=== PATIENT | female | born 1960 | race Caucasian/White ===

== ENCOUNTER 2023-08-13 13:31 | Emergency (ER) | payer MEDICAID, SELFPAY ==
[2023-08-13 13:34] VITALS: BP 116/59; PULSE 66; RESP 20; TEMP 36.6; O2SAT 99; BMI 32.3
--- NOTE | 2023-08-13 13:35 | XR_ITS ---
The [address] [address] Patient Name: ZEV CALDWELL MRN: [id number] date: 1960 Sex: F Assigned Patient Location: ER Current Patient Location: ED.MAIN Accession/Order Number: [id number] Exam Date: 08/13/2023 13:55 Report Date: 08/13/2023 14:29 At the request of: BESS SHAW Procedure: XR pelvis 1-2V EXAM: XR pelvis 1-2V HISTORY: fall COMPARISON: None. TECHNIQUE: One view of the pelvis FINDINGS: There is no acute fracture or dislocation. The soft tissues are unremarkable. Mildly gaseous distention of the small bowel loops. XR/XR pelvis 1-2V IMPRESSION: No acute fracture or dislocation. Electronically authenticated by: REX SANCHEZ Date: 08/13/2023 14:29
--- NOTE | 2023-08-13 13:35 | CT_ITS ---
The [address] [address] Patient Name: ZEV CALDWELL MRN: [id number] date: 1960 Sex: F Assigned Patient Location: ER Current Patient Location: ER Accession/Order Number: [id number] Exam Date: 08/13/2023 13:55 Report Date: 08/13/2023 14:32 At the request of: BESS SHAW Procedure: CT facial bones wo con CT head/brain wo con, CT facial bones wo con, 08/13/2023 1:55 PM EST INDICATION: Fall COMPARISON: Noncontrast CT of the head 05/05/2022 TECHNIQUE: Axial CT images of the brain from skull base to vertex, including portions of the face and sinuses, were obtained without contrast. High-resolution axial images of the maxillofacial region with multiplanar reformatted imaging. Portions of the brain, skull base, and upper neck were also included in the imaging field. Multiplanar reformatted images were generated and reviewed as needed. Dose reduction techniques were achieved by using automated exposure control and/or adjustment of mA and/or kV according to patient size and/or use of iterative reconstruction technique FINDINGS: Small left frontal subgaleal hematoma. Global cortical atrophy. No intracranial mass, hydrocephalus, midline shift or acute hemorrhage.No extra-axial collection. Juan-white matter differentiation is preserved. Facial bones are intact. Mandible, as well as mandibular condyles are intact. Temporomandibular joints are appropriately positioned. Zygomatic arches are intact. No evidence for nasal bone fracture. Nasal septum is midline. Mild chronic mucosal thickening right maxillary sinus. The remaining paranasal sinuses and mastoid air cells are clear. On the coronal reformatted images, the inferior orbital floor and rims are intact. No acute skull fracture. CT/CT facial bones wo con IMPRESSION: 1. No acute intracranial infarct or hemorrhage. 2. Small left frontal subgaleal hematoma. No acute fracture or dislocation. Electronically authenticated by: NOEMY ANDUJAR Date: 08/13/2023 14:32
--- NOTE | 2023-08-13 13:35 | CT_ITS ---
The [address] [address] Patient Name: ZEV CALDWELL MRN: [id number] date: 1960 Sex: F Assigned Patient Location: ER Current Patient Location: ER Accession/Order Number: [id number] Exam Date: 08/13/2023 13:55 Report Date: 08/13/2023 14:32 At the request of: BESS SHAW Procedure: CT head/brain wo con CT head/brain wo con, CT facial bones wo con, 08/13/2023 1:55 PM EST INDICATION: Fall COMPARISON: Noncontrast CT of the head 05/05/2022 TECHNIQUE: Axial CT images of the brain from skull base to vertex, including portions of the face and sinuses, were obtained without contrast. High-resolution axial images of the maxillofacial region with multiplanar reformatted imaging. Portions of the brain, skull base, and upper neck were also included in the imaging field. Multiplanar reformatted images were generated and reviewed as needed. Dose reduction techniques were achieved by using automated exposure control and/or adjustment of mA and/or kV according to patient size and/or use of iterative reconstruction technique FINDINGS: Small left frontal subgaleal hematoma. Global cortical atrophy. No intracranial mass, hydrocephalus, midline shift or acute hemorrhage.No extra-axial collection. Juan-white matter differentiation is preserved. Facial bones are intact. Mandible, as well as mandibular condyles are intact. Temporomandibular joints are appropriately positioned. Zygomatic arches are intact. No evidence for nasal bone fracture. Nasal septum is midline. Mild chronic mucosal thickening right maxillary sinus. The remaining paranasal sinuses and mastoid air cells are clear. On the coronal reformatted images, the inferior orbital floor and rims are intact. No acute skull fracture. CT/CT head/brain wo con IMPRESSION: 1. No acute intracranial infarct or hemorrhage. 2. Small left frontal subgaleal hematoma. No acute fracture or dislocation. Electronically authenticated by: NOEMY ANDUJAR Date: 08/13/2023 14:32
--- NOTE | 2023-08-13 13:35 | XR_ITS ---
The [address] [address] Patient Name: ZEV CALDWELL MRN: [id number] date: 1960 Sex: F Assigned Patient Location: ER Current Patient Location: ED.MAIN Accession/Order Number: [id number] Exam Date: 08/13/2023 13:55 Report Date: 08/13/2023 15:07 At the request of: BESS SHAW Procedure: XR chest 1V EXAMINATION: XR chest 1V HISTORY: fall COMPARISON: No relevant comparison available. FINDINGS: LUNGS: No significant pulmonary parenchymal abnormalities. VASCULATURE: No increased pulmonary vasculature. PLEURA: No pneumothorax, effusion, or pleural thickening. CARDIAC: No cardiomegaly or cardiac silhouette abnormality. MEDIASTINUM: No visible mass or adenopathy. BONES: No fracture or visible bone lesion. OTHER: Negative. XR/XR chest 1V IMPRESSION: 1. No acute cardiopulmonary process. 2. No appreciable fracture. Electronically authenticated by: HOOD FAYE Date: 08/13/2023 15:07
--- NOTE | 2023-08-13 13:35 | CT_ITS ---
The [address] [address] Patient Name: ZEV CALDWELL MRN: [id number] date: 1960 Sex: F Assigned Patient Location: ER Current Patient Location: ER Accession/Order Number: [id number] Exam Date: 08/13/2023 13:55 Report Date: 08/13/2023 14:39 At the request of: BESS SHAW Procedure: CT cervical spine wo con CT cervical spine wo con, 08/13/2023 1:55 PM EST INDICATION: fall COMPARISON: There is no appropriate prior study for comparison. TECHNIQUE: Thin-section axial CT images of the entire cervical spine were acquired without contrast. Supplemental 2D reformatted images were generated and reviewed as needed. Dose reduction techniques were achieved by using automated exposure control and/or adjustment of mA and/or kV according to patient size and/or use of iterative reconstruction technique. FINDINGS: There is straightening of normal physiologic cervical lordosis. No acute fracture or dislocation is noted. There is multilevel degenerative changes of cervical spine. The visualized portions of lungs are unremarkable. There is no suspicious osteolytic or osteoblastic lesion. CT/CT cervical spine wo con IMPRESSION: No acute fracture or dislocation is noted. Electronically authenticated by: CHADWICK ALLEN Date: 08/13/2023 14:39
--- NOTE | 2023-08-13 13:36 | ED.FALL1 ---
HPI - Fall General Chief Complaint: Fall Stated Complaint: fall Time Seen by Provider: 08/13/23 13:34 History of Present Illness HPI Narrative: Patient is a 63-year-old female who presents to the emergency department by ambulance from the dementia unit where she is a resident at a local senior care for the evaluation of an injury to the head. Patient has a history of psychosis, contractures. She is not anticoagulated. This was unwitnessed fall in the senior care, apparently the patient rolled out of bed and was found on the floor. She chronically complains of generalized pain, senior care staff say she is at her mental baseline. She has not had any other focal medical complaints. Related Data Allergies Allergy/AdvReac Type Severity Reaction Status Date / Time No Known Drug Allergies Allergy Verified 08/13/23 13:41 Review of Systems ROS Status of ROS unobtainable due to medical condition and unobtainable due to mental status Exam Narrative Exam Narrative: Gen.: Awake, alert, in no distress Head: Normocephalic, swelling and ecchymosis noted to the left forehead above the eyebrow with minimal swelling of the left cheek. No abrasions, lacerations noted. No dental injury noted. No epistaxis or nasal injury. Neck: C-spine nontender ENT: Moist mucous membranes Respiratory: No respiratory distress, lungs clear bilaterally Cardio: Regular rate and rhythm Gastrointestinal: Abdomen is soft, nondistended and nontender to palpation; pelvis is stable Extremities: Patient moves lower extremities actively, no bony point tenderness. Contractures noted of the upper extremities with no focal tenderness. Back: No bony tenderness of the T-spine or L-spine; no ecchymosis or obvious deformity, no step-off Psych: Patient is anxious Neuro: No focal neuro deficit Skin: Warm, dry, intact Constitutional Vital Signs, click to edit/add: Last Vital Signs Temp 98 F 08/13/23 13:34 Pulse 55 L 08/13/23 16:00 Resp 16 08/13/23 16:00 BP 116/59 08/13/23 13:34 Pulse Ox 98 08/13/23 16:00 O2 Del Method Room Air 08/13/23 16:00 Course Vital Signs Vital signs: Vital Signs Temperature 98 F 08/13/23 13:34 Pulse Rate 66 08/13/23 13:34 Respiratory Rate 20 08/13/23 13:34 Blood Pressure 116/59 08/13/23 13:34 Pulse Oximetry 99 08/13/23 13:34 Oxygen Delivery Method Room Air 08/13/23 13:34 Temperature 98 F 08/13/23 13:34 Pulse Rate 55 L 08/13/23 16:00 Respiratory Rate 16 08/13/23 16:00 Blood Pressure 116/59 08/13/23 13:34 Pulse Oximetry 98 08/13/23 16:00 Oxygen Delivery Method Room Air 08/13/23 16:00 MDM - Fall MDM Narrative Medical decision making narrative: Patient with a benign exam other than hematoma to the left forehead. She is at her mental baseline, CT of the head, facial bones, C-spine within normal limits. X-rays of the chest and pelvis are unremarkable. She has normal vital signs in the Emergency Room. No evidence of extremity injury. Discharged back to the senior care, follow-up with PCP and return to the Emergency Room if symptoms change or worsen. Medical Records Attestation: I reviewed the patient's medical records. Imaging Data XR pelvis: Attestation: I have reviewed the pertinent imaging results. Radiologist's impression: Procedure: XR pelvis 1-2V EXAM: XR pelvis 1-2V HISTORY: fall COMPARISON: None. TECHNIQUE: One view of the pelvis FINDINGS: There is no acute fracture or dislocation. The soft tissues are unremarkable. Mildly gaseous distention of the small bowel loops. IMPRESSION: No acute fracture or dislocation. Electronically authenticated by: REX SANCHEZ Date: 08/13/2023 14:29 Chest x-ray: Attestation: I have reviewed the pertinent imaging results. CT scan - head: Attestation: I have reviewed the pertinent imaging results. Radiologist's impression: Procedure: CT head/brain wo con CT head/brain wo con, CT facial bones wo con, 08/13/2023 1:55 PM EST INDICATION: Fall COMPARISON: Noncontrast CT of the head 05/05/2022 TECHNIQUE: Axial CT images of the brain from skull base to vertex, including portions of the face and sinuses, were obtained without contrast. High-resolution axial images of the maxillofacial region with multiplanar reformatted imaging. Portions of the brain, skull base, and upper neck were also included in the imaging field. Multiplanar reformatted images were generated and reviewed as needed. Dose reduction techniques were achieved by using automated exposure control and/or adjustment of mA and/or kV according to patient size and/or use of iterative reconstruction technique FINDINGS: Small left frontal subgaleal hematoma. Global cortical atrophy. No intracranial mass, hydrocephalus, midline shift or acute hemorrhage.No extra-axial collection. Juan-white matter differentiation is preserved. Facial bones are intact. Mandible, as well as mandibular condyles are intact. Temporomandibular joints are appropriately positioned. Zygomatic arches are intact. No evidence for nasal bone fracture. Nasal septum is midline. Mild chronic mucosal thickening right maxillary sinus. The remaining paranasal sinuses and mastoid air cells are clear. On the coronal reformatted images, the inferior orbital floor and rims are intact. No acute skull fracture. IMPRESSION: 1. No acute intracranial infarct or hemorrhage. 2. Small left frontal subgaleal hematoma. No acute fracture or dislocation. Electronically authenticated by: NOEMY ANDUJAR Date: 08/13/2023 14:32 CT cervical spine: Attestation: I have reviewed the pertinent imaging results. Radiologist's impression: Procedure: CT cervical spine wo con CT cervical spine wo con, 08/13/2023 1:55 PM EST INDICATION: fall COMPARISON: There is no appropriate prior study for comparison. TECHNIQUE: Thin-section axial CT images of the entire cervical spine were acquired without contrast. Supplemental 2D reformatted images were generated and reviewed as needed. Dose reduction techniques were achieved by using automated exposure control and/or adjustment of mA and/or kV according to patient size and/or use of iterative reconstruction technique. FINDINGS: There is straightening of normal physiologic cervical lordosis. No acute fracture or dislocation is noted. There is multilevel degenerative changes of cervical spine. The visualized portions of lungs are unremarkable. There is no suspicious osteolytic or osteoblastic lesion. IMPRESSION: No acute fracture or dislocation is noted. Electronically authenticated by: CHADWICK ALLEN Date: 08/13/2023 14:39 CT facial bones: Attestation: I have reviewed the pertinent imaging results. Radiologist's impression: Procedure: CT head/brain wo con CT head/brain wo con, CT facial bones wo con, 08/13/2023 1:55 PM EST INDICATION: Fall COMPARISON: Noncontrast CT of the head 05/05/2022 TECHNIQUE: Axial CT images of the brain from skull base to vertex, including portions of the face and sinuses, were obtained without contrast. High-resolution axial images of the maxillofacial region with multiplanar reformatted imaging. Portions of the brain, skull base, and upper neck were also included in the imaging field. Multiplanar reformatted images were generated and reviewed as needed. Dose reduction techniques were achieved by using automated exposure control and/or adjustment of mA and/or kV according to patient size and/or use of iterative reconstruction technique FINDINGS: Small left frontal subgaleal hematoma. Global cortical atrophy. No intracranial mass, hydrocephalus, midline shift or acute hemorrhage.No extra-axial collection. Juan-white matter differentiation is preserved. Facial bones are intact. Mandible, as well as mandibular condyles are intact. Temporomandibular joints are appropriately positioned. Zygomatic arches are intact. No evidence for nasal bone fracture. Nasal septum is midline. Mild chronic mucosal thickening right maxillary sinus. The remaining paranasal sinuses and mastoid air cells are clear. On the coronal reformatted images, the inferior orbital floor and rims are intact. No acute skull fracture. IMPRESSION: 1. No acute intracranial infarct or hemorrhage. 2. Small left frontal subgaleal hematoma. No acute fracture or dislocation. Electronically authenticated by: NOEMY ANUDJAR Date: 08/13/2023 14:32 Discharge Plan Discharge Chief Complaint: Fall Clinical Impression: Closed head injury, Contusion of face Patient Disposition: Home, Self-Care Time of Disposition Decision: 14:51 Condition: Good Mode of Transportation: EMS Instructions: Head Injury (ED), Facial Contusion (ED) Stand Alone Forms: Portal Instructions Referrals: DEVIN PIERCE [Primary Care Provider] - 1 week Discharge Date/Time: 08/13/23 16:15
[2023-08-13 14:52] VITALS: PULSE 56; RESP 20; O2SAT 94
[2023-08-13 16:00] VITALS: PULSE 55; RESP 16; O2SAT 98
--- OUTSIDE RECORDS SUMMARY | 2023-09-11 21:47 | XMS_ITS | CCD ---
Author Name Unknown Address [address] [place] [address] Organization [facility] Care Team Providers Care Lace Sewer Name Role Phone Unavailable Primary Care Provider UnavailSTEVEN Davis Referring Unavailable AHDAISY FERNANDEZ Referring Unavailable DAISY GUEVARA Referring Unavailable CHELSI PARRA Admitting Unavailable CHELSI PARRA Attending Unavailable Max Horan Unavailable HIRAM, DR BARNES Attending Unavailable HIRAM, DR BARNES Admitting Unavailable MEME, DR MACRINA Varela Consulting Unavailable HAY, DR BARNES Consulting Unavailable KLYMMIMI Consulting Unavailable BENEDICT, DR MORATAYA Attending Unavailable BENEDICT, DR MORATAYA Consulting Unavailable BENEDICT, DR MORATAYA Admitting Unavailable ZIEBER, DR MORATAYA R Consulting Unavailable Allergies Allergy Classification Reported Allergen(s) Allergy Type Date of Onset Reaction(s) Facility (4 sources) Other Propensity to adverse reactions 08-02-2011 [place], [place] Medications Current Medications Medication Drug Class(es) Dates Sig (Normalized) Sig (Original) Acetaminophen (1 source) Start: 09-14-2020 acetaminophen (TYLENOL) tablet 650 mg ARIPiprazole 5 mg oral tablet (1 source) Atypical Antipsychotic ARIPiprazole 5 MG Oral for 30 Days Active cefTRIAXone (ROCEPHIN) 1 g in sterile water 10 mL IV syringe (1 source) Start: 09-14-2020 cefTRIAXone (ROCEPHIN) 1 g in sterile water 10 mL IV syringe cephalexin 500 mg oral capsule (2 sources) Cephalosporin Antibacterial Start: 09-15-2020 End: 09-22-2020 take 1 capsule by mouth twice daily cephALEXin (KEFLEX) 500 MG capsule Take 1 capsule by mouth 2 times daily for 7 days 14 capsule 0 09/15/2020 09/22/2020 Active diazePAM 5 mg oral tablet (1 source) Benzodiazepine diazePAM 5 MG Or al for 1 Days Active 0.4 ml enoxaparin sodium 100 mg/ml prefilled syringe (1 source) Low Molecular Weight Heparin Start: 09-14-2020 inject 40 mg by subcutaneous injection once daily 40 mg, Subcutaneous, DAILY, First dose on Sun09/14/20 at 0930 ergocalciferol 1.25 mg oral capsule (1 source) Provitamin D2 Compound Vitamin D (Ergocalciferol) 1.25 MG (61775 UT) Oral for 28 Days Active famotidine 20 mg oral tablet (1 source) Histamine-2 Receptor Antagonist Start: 09-14-2020 take 20 mg by mouth twice daily 20 mg, Oral, 2 TIMES DAILY, First dose on Sun09/14/20 at 0930 1 ml haloperidol 5 mg/ml injection (1 source) Typical Antipsychotic Start: 09-15-2020 haloperidol lactate (HALDOL) injection 1 mg LORazepam 1 mg oral tablet (1 source) Benzodiazepine LORazepam 1 MG Oral for 7 Days Active meclizine hydrochloride 25 mg oral tablet (5 sources) Antiemetic Start: 06-06-2015 take 25 mg by mouth three times daily as needed for dizziness 25 mg, Oral, 3 TIMES DAILY PRN, Dizziness, Starting Sun09/14/20 at 0911 nystatin 100159 unt/ml topical cream (1 source) Polyene Antifungal Nystatin 1000 00 UNIT/GM External for 14 Days Active polyethylene glycol 3350 89571 mg powder for oral solution (1 source) Osmotic Laxative Start: 09-14-2020 17 g, Oral, DAILY PRN, Constipation, Starting Sun09/14/20 at 0911 First line therapy for constipation primidone 50 mg oral tablet (1 source) Anti-epileptic Agent Primidone 5 0 MG Oral for 30 Days Active Promethazine (1 source) Phenothiazine Start: 09-14-2020 promethazine (PHENERGAN) tablet 12.5 mg raloxifene hydrochloride 60 mg oral tablet (5 sources) Estrogen Agonist/Antagonist Raloxifene HCl 60 MG Oral for 30 Days Active sertraline 25 mg oral tablet (1 source) Serotonin Reuptake Inhibitor Sertraline HCl 25 MG Oral for 30 Days Active 3 ml sodium chloride 9 mg/ml injection (3 sources) Start: 09-14-2020 Intravenous, at 75 mL/hr, CONTINUOUS, Starting Sun09/14/20 at 0930 Start: 09-14-2020 10 mL, Intrave nous, EVERY 12 HOURS SCHEDULED (2 times per day), First dose on Sun09/14/20 at 0930 Start: 09-14-2020 take 10 mL intraveno us route once as needed 10 mL, Intravenous, PRN, Line Care, After every IV line use, Starting Sun09/14/20 at 0911 sulfamethoxazole 800 mg / trimethoprim 160 mg oral tablet (1 source) Dihydrofolate Reductase Inhibitor Antibacterial, Sulfonamide Antimicrobial Sulfamethoxazole-Tri methoprim 800-160 MG Oral for 7 Days Active valproic acid 50 mg/ml oral solution (1 source) Mood Stabilizer, Anti-epileptic Agent Valproic Acid 250 M G/5ML Oral for 30 Days Active Problems Active Problems Problem Classification Problem Date Documented Date Episodic/Chronic Deficiency and other anemia (5 sources) Normocytic anemia; Translations: [Normocytic anemia] Onset: 09-14-2020 09-14-2020 Episodic Mood disorders (4 sources) Depressive disorder; Translations: [Depression] Onset: 11-11-2010 07-10-2011 Chronic Nutritional deficiencies (5 sources) Nutritional marasmus; 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] Onset: 09-15-2020 09-15-2020 Chronic Osteoarthritis (4 sources) Osteoarthritis of joint of left shoulder region; Translations: [Primary osteoarthritis, left shoulder] Onset: 04-04-2022 Resolved: 04-04-2022 Chronic Other connective tissue disease (5 sources) Fibromyalgia; Translations: [Fibromyalgia] Onset: 09-14-2020 09-14-2020 Episodic Other nervous system disorders (4 sources) Nerve root disorder; 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] Onset: 12-09-2010 07-10-2011 Chronic Other nervous system disorders (4 sources) Abnormal reflex; Translations: [ABNORMAL REFLEX] Onset: 02-15-2022 Episodic Parkinson`s disease (2 sources) Parkinson's disease; Translations: [Parkinson's disease] Onset: 04-04-2022 Resolved: 04-04-2022 Chronic Residual codes; unclassified (5 sources) Altered mental status; Translations: [Altered mental status, unspecified] Onset: 09-14-2020 09-14-2020 Episodic Past or Other Problems Problem Classification Problem Date Documented Date Episodic/Chronic Other female genital disorders (4 sources) Abnormal vaginal bleeding; Translations: [Abnormal vaginal bleeding] Onset: 11-11-2010 07-10-2011 Episodic Other lower respiratory disease (4 sources) Dyspnea; Translations: [Dyspnea] Onset: 12-09-2010 07-10-2011 Episodic Other screening for suspected conditions (not mental disorders or infectious disease) (4 sources) Mammography abnormal; Translations: [Abnormal mammogram] Onset: 11-11-2010 07-10-2011 Episodic Residual codes; unclassified (4 sources) Postmenopausal state; Translations: [Post-menopausal] Onset: 10-14-2010 07-10-2011 Episodic Spondylosis; intervertebral disc disorders; other back problems (5 sources) Low back pain; Translations: [Spinal stenosis, cervical region] Onset: 10-14-2010 Resolved: 04-04-2022 07-10-2011 Episodic Unclassified (8 sources) Patient encounter status; Translations: [Screening for colorectal cancer] Onset: 10-17-2010 Resolved: 07-24-2018 07-22-2018 Results Test Name Value Interpretation Reference Range Facil ity BNPon 05-05-2022 Natriuretic peptide B (Bld) [Mass/Vol] 580.0 pg/mL Normal <=900.0 [facility] Comment on above: Performed By: #### C MP, CMADM, BNP #### [facility] [address] [address] [address] Lyndsey Hayes CARDIAC ANUP ADMITon 022 CK [Catalytic activity/Vol] 86 U/L Normal 26-[address] [facility] Comment on above: Performed By: #### C MP, CMADM, BNP #### [facility] [address] [address] [address] Lyndsey Hayes CK.MB [Mass/Vol] 1.70 ng/mL Normal <=3.60 [facility] Comment on above: Performed By: #### C MP, CMADM, BNP #### [facility] [address] [address] [address] Lyndsey Hayes HSTROP 17.8 pg/mL Normal 4.0-51.3 [facility] Comment on above: Result Comment: CUT- OFF POINTS HAVE BEEN ESTABLISHED BASED ON THE FOURTH UNIVERSAL DEFINITIONS OF MYOCARDIAL INFARCTION. THE UPPER REFERENCE LIMIT (URL) OF TROPONIN, DEFINED THE 99TH PERCENTILE OF cTnI DISTRIBUTION IN A REFERENCE POPULATION, HAS BEEN CONFIRMED THE DECISION THRESHOLD FOR CA DIAGNOSIS. Performed By: #### C MP, CMADM, BNP #### [facility] [address] [place] [address] Dr. Lyndsey Hayes ANDREA 189 ng/mL Critically high 9-82 [facility] Comment on above: Performed By: #### C MP, CMADM, BNP #### [facility] [address] [place] [address] Dr. Lyndsey Hayes CBC AUTO DIFFon 05-05-2022 BASO # 0.0 103/ul Normal 0.0-0.1 [facility] Comment on above: Performed By: #### C BC #### [facility] [address] [place] [address] Dr. Lyndsey Hayes Basophils/100 WBC (Bld) 0.2 % Normal 0.2-2.0 [facility] Comment on above: Performed By: #### C BC #### [facility] [address] [place] [address] Dr. Lyndsey Hayes EO # 0.0 103/ul Normal 0.0-0.7 [facility] Comment on above: Performed By: #### C BC #### [facility] [address] [place] [address] Dr. Lyndsey Hayes Eosinophils/100 WBC (Bld) 0.1 % Critically low 0.9-7. 0 [facility] Comment on above: Performed By: #### C BC #### [facility] [address] [place] [address] Dr. Lyndsey Hayes Erythrocyte distribution wid th (RBC) [Ratio] 13.7 % Normal 11.0-15.0 [facility] Comment on above: Performed By: #### C BC #### [facility] [address] [place] [address] Dr. Lyndsey Hayes Hematocrit (Bld) [Volume fraction] 36.2 % Normal 3 6.0-48.[address] [facility] Comment on above: Performed By: #### C BC #### [facility] [address] [address] [address] Lyndsey Hayes Hemoglobin (Bld) [Mass/Vol] 11.6 g/dL Critically low 12.0 -16.0 [facility] Comment on above: Performed By: #### C BC #### [facility] [address] [place] [address] Dr. Lyndsey Hayes IG # 0.03 10e3/ul Normal 0.00-0.[address] [facility] Comment on above: Performed By: #### C BC #### [facility] [address] [place] [address] Dr. Lyndsey Hayes IG % 0.3 % Normal 0.0-0.5 [facility] Comment on above: Performed By: #### C BC #### [facility] [address] [place] [address] Dr. Lyndsey Hayes LYMPH # 1.4 103/ul Normal 1.2-3.8 [facility] Comment on above: Performed By: #### C BC #### [facility] [address] [place] [address] Dr. Lyndsey Hayes Lymphocytes/100 WBC (Bld) 14.3 % Critically low 20.5-[address] [facility] Comment on above: Performed By: #### C BC #### [facility] [address] [place] [address] Dr. Lyndsey Hayes MANUAL DIFF REQ NO Normal [facility] Comment on above: Performed By: #### C BC #### [facility] [address] [place] [address] Dr. Lyndsey Hayes MCH (RBC) [Entitic mass] 28.9 pg Normal 26.7-34.0 [facility] Comment on above: Performed By: #### C BC #### [facility] [address] [place] [address] Dr. Lyndsey Hayes MCHC (RBC) [Mass/Vol] 32.0 g/dL Normal 29.9-35.2 [facility] Comment on above: Performed By: #### C BC #### [facility] [address] [place] [address] Dr. Lyndsey Hayes MCV (RBC) [Entitic vol] 90.0 fL Normal 81.0-99.0 [facility] Comment on above: Performed By: #### C BC #### [facility] [address] [place] [address] Dr. Lyndsey Hayes MONO # 0.6 103/ul Normal 0.3-0.8 [facility] Comment on above: Performed By: #### C BC #### [facility] [address] [place] [address] Dr. Lyndsey Hayes Monocytes/100 WBC (Bld) 6.4 % Normal 1.7-12.0 [facility] Comment on above: Performed By: #### C BC #### [facility] [address] [place] [address] Dr. Lyndsey Hayes NEUT # 7.9 103/ul Critically high 1.4-6.5 [facility] Comment on above: Performed By: #### C BC #### [facility] [address] [place] [address] Dr. Lyndsey Hayes Neutrophils/100 WBC (Bld) 78.7 % Critically high 43.0- 75.[address] [facility] Comment on above: Performed By: #### C BC #### [facility] [address] [place] [address] Dr. Lyndsey Hayes Platelet mean volume (Bld) [ Entitic vol] 11.5 fL Normal 9.5-13.5 [facility] Comment on above: Performed By: #### C BC #### [facility] [address] [place] [address] Dr. Lyndsey Hayes PLT 272 103/ul Normal 150-450 [facility] Comment on above: Performed By: #### C BC #### [facility] [address] [place] [address] Dr. Lyndsey Hayes RBC 4.02 106/ul Critically low 4.20-5.40 [facility] Comment on above: Performed By: #### C BC #### [facility] [address] [place], [place] [address] Dr. Lyndsey Hayes WBC 10.0 103/ul Normal 4.0-11.0 [facility] Comment on above: Performed By: #### C #### [facility] [address] [place] [address] CSPINE WO CONon 2 CT CSPINE WO CON CERVICAL SPINE CT WI THOUT CONTRAST: 05/05/2022 8:24 AM EDT Clinical History:History of fall Comparison: None available . Unenhanced helically acquired data per protocol. Modest motion artifact PREVERTEBRAL/PARASPINAL: No focal soft tissue prominence or obvious fluid collection in these regions. ALIGNMENT: Loss of lordosis. No distinct evidence of acute fracture or dislocation. Multilevel moderate DDD and modest associated spondylosis. OTHER SOFT TISSUES: No focal acute posttraumatic finding IMPRESSION: 1. No evidence of acute fracture or dislocation. All CT scans at this facility use dose modulation, iterative reconstruction, and/or weight based dosing when appropriate to reduce radiation dose to as low as reasonably achievable. Electronically authenticated by: MIMI DAVE Date: 2022-05-05 08:57 Normal [facility] CT HEAD WO CONon 05-05-2022 CT HEAD WO CON HEAD CT WITHOUT CONT RAST: 05/05/2022 8:24 AM EDT Clinical Data: History of fall Comparison: No previous Unenhanced axial data from base to vertex. INTRA-AXIAL: No acute hemorrhage. No acute infarction is evident. EXTRA-AXIAL: No acute hemorrhage. No focal fluid collection. BRAIN VOLUME: Moderate bifrontal and high parietal atrophy. Elsewhere, mild cerebral atrophy. VENTRICLES: Aspects are prominent but not out of proportion to the atrophy. PARANASAL SINUSES: No air-fluid levels in the included aspects. MASTOIDS: Clear. CALVARIUM: No acute finding. EXTRACALVARIAL: No acute findings IMPRESSION: 1. No distinct evidence of acute intracranial process on this unenhanced study as described. All CT scans at this facility use dose modulation, iterative reconstruction, and/or weight based dosing when appropriate to reduce radiation dose to as low as reasonably achievable. Electronically authenticated by: MIMI DAVE Date: 2022-05-05 08:52 Normal [facility] PROF 14(COMP METB)on 08-12-2 022 Albumin [Mass/Vol] 3.3 g/dL Critically low 3.4-5.0 [facility] Comment on above: Performed By: #### C MP, CMADM, BNP #### [facility] [address] [address] [address] Lyndsey Hayes Albumin/Globulin [Mass ratio] 0.8 {ratio} Normal [facility] Comment on above: Performed By: #### C MP, CMADM, BNP #### [facility] [address] [address] [address] Lyndsey Hayes ALP [Catalytic activity/Vol] 76 U/L Normal 46-[address] [facility] Comment on above: Performed By: #### C MP, CMADM, BNP #### [facility] [address] [place] [address] Dr. Lyndsey Hayes ALT [Catalytic activity/Vol] 15 U/L Normal 14-[address] [facility] Comment on above: Performed By: #### C MP, CMADM, BNP #### [facility] [address] [place] [address] Dr. Lyndsey Hayes Anion gap [Moles/Vol] 18.2 mmol/L Normal [facility] Comment on above: Performed By: #### C MP, CMADM, BNP #### [facility] [address] [place] [address] Dr. Lyndsey Hayes AST [Catalytic activity/Vol] 20 U/L Normal 15-[address] [facility] Comment on above: Performed By: #### C MP, CMADM, BNP #### [facility] [address] [place] [address] Dr. Lyndsey Hayes Bilirubin [Mass/Vol] 0.4 mg/dL Normal 0.2-1.[address] [facility] Comment on above: Performed By: #### C MP, CMADM, BNP #### [facility] [address] [place] [address] Dr. Lyndsey Hayes Calcium [Mass/Vol] 9.1 mg/dL Normal 8.5-10.1 [facility] Comment on above: Performed By: #### C MP, CMADM, BNP #### [facility] [address] [address] [address] Lyndsey Hayes Chloride [Moles/Vol] 103 mmol/L Normal 98-[address] [facility] Comment on above: Performed By: #### C MP, CMADM, BNP #### [facility] [address] [address] [address] Lyndsey Hayes CO2 [Moles/Vol] 25.0 mmol/L Normal 21.0-32.0 [facility] Comment on above: Performed By: #### C MP, CMADM, BNP #### [facility] [address] [address] [address] Lyndsey Hayes Creatinine [Mass/Vol] 0.95 mg/dL Normal 0.55-1.[address] [facility] Comment on above: Performed By: #### C MP, CMADM, BNP #### [facility] [address] [place] [address] Dr. Lyndsey Hayes EGFR-AF [place] >60 Normal >=60 [facility] Comment on above: Performed By: #### C MP, CMADM, BNP #### [facility] [address] [place] [address] Dr. Lyndsey Hayes EGFR-NON AF [place] 60 mL/min/1.73m2 Normal >=[address] [facility] Comment on above: Performed By: #### C MP, CMADM, BNP #### [facility] [address] [place] [address] Dr. Lyndsey Hayes Globulin (S) [Mass/Vol] 4.2 g/dL Normal [facility] Comment on above: Performed By: #### C MP, CMADM, BNP #### [facility] [address] [place] [address] Dr. Lyndsey Hayes Glucose [Mass/Vol] 101 mg/dL Normal 74-106 [facility] Comment on above: Performed By: #### C MP, CMADM, BNP #### [facility] [address] [place] [address] Dr. Lyndsey Hayes Potassium [Moles/Vol] 4.2 mmol/L Normal 3.5-5.[address] [facility] Comment on above: Performed By: #### C MP, CMADM, BNP #### [facility] [address] [address] [address] Lyndsey Hayes Protein [Mass/Vol] 7.5 g/dL Normal 6.4-8.2 [facility] Comment on above: Performed By: #### C MP, CMADM, BNP #### [facility] [address] [place] [address] Dr. Lyndsey Hayes Sodium [Moles/Vol] 142 mmol/L Normal 136-145 [facility] Comment on above: Performed By: #### C MP, CMADM, BNP #### [facility] [address] [address] [address] Lyndsey Hayes Urea nitrogen [Mass/Vol] 22.0 mg/dL Critically high 7.0-18 .[address] [facility] Comment on above: Performed By: #### C MP, CMADM, BNP #### [facility] [address] [place] [address] Dr. Lyndsey Hayes Urea nitrogen/Creatinine [Mass ratio] 23.2 mg/mg Normal [facility] Comment on above: Performed By: #### C MP, CMADM, BNP #### [facility] [address] [place] [address] Dr. Lyndsey Hayes XR LSPINE 2_3 VIEWSon 2021 XR LSPINE 2_3 VIEWS EXAMINATION: XR LSPI NE 2_3 VIEWS, XR TSPINE 2 VIEWS HISTORY: History of fall COMPARISON: No relevant comparison available. FINDINGS: BONES: Normal alignment of the thoracic and lumbar spine with no acute fracture or spondylolisthesis. Mild degenerative spondylosis and facet osteoarthropathy DISC SPACES: Mild multilevel disc space narrowing with endplate sclerosis PARASPINOUS: Negative. No paraspinous abnormality is seen. OTHER: Limited exam with underpenetration IMPRESSION: Mild degenerative changes No acute abnormality Electronically authenticated by: MACRINA VALENTINE Date: 2022-05-05 09:20 Normal [facility] XR PELVIS 1_2 VIEWSon 2021 XR PELVIS 1_2 VIEWS EXAMINATION: XR PELV IS 1_2 VIEWS HISTORY: History of fall COMPARISON: No relevant comparison available. FINDINGS: BOWEL GAS PATTERN: No abnormal dilation or deviation. CALCIFICATIONS: None significant. OTHER: Left pelvic surgical clips. No abnormal gaseous collections. IMPRESSION: No acute fracture Electronically authenticated by: MACRINA VALENTINE Date: 2022-05-05 09:17 Normal [facility] XR RIBS BIL_PA CH 4V OR GRon 05-05-2022 XR RIBS BIL_PA CH 4V OR GR EXAMINATION: XR RIBS BIL_PA CH 4V OR GR HISTORY: History of fall COMPARISON: No relevant comparison available. FINDINGS: LUNGS: No significant pulmonary parenchymal abnormalities. PLEURA: No pneumothorax, effusion, or pleural thickening. MEDIASTINUM: No visible mass or adenopathy. CARDIAC: No cardiomegaly or cardiac silhouette abnormality. RIBS: No acute rib fracture OTHER: Negative. IMPRESSION: Clear lungs No acute rib fractures Electronically authenticated by: MACRINA VALENTINE Date: 2022-05-05 09:15 Normal [facility] MRI CSPINE WO CONon 02-16-20 MRI CSPINE WO CON EXAMINATION: MRI CSP INE WO CON HISTORY: Abnormal reflex , hyperreflexia, muscle weakness, gait abnormality, neck stiffness COMPARISON: No relevant comparison available. TECHNIQUE: A variety of imaging planes and parameters were utilized for visualization of suspected pathology. FINDINGS: CRANIOCERVICAL AREA: Normal foramen magnum with no Chiari malformation. PARASPINAL AREA: Normal with no visible mass. BONES: No fracture, pars defect, or osseous lesion. CORD: Normal caliber, contour, and signal intensity. CERVICAL DISC LEVELS: C2-C3: Mild right foramen narrowing secondary to mild diffuse disc bulging and mild facet arthropathy. C3-C4: Moderate-marked central canal and moderate bilateral foramen narrowing. Mild diffuse disc bulging and mild disc height reduction. Mild degenerative facet arthropathy. C4-C5: Moderate-marked central canal and left foramen narrowing. Moderate right foramen narrowing. Moderate diffuse disc bulging with mild disc height reduction. Mild degenerative facet arthropathy. C5-C6: Moderate-marked central canal narrowing. Marked left, moderate right foramen narrowing. Moderate diffuse disc bulging and mild disc height reduction. Moderate degenerative facet arthropathy bilaterally. C6-C7: Mild central canal and moderate bilateral foramen narrowing. Mild diffuse disc bulging without disc height reduction. C7-T1:. Mild central canal and moderate bilateral foramen narrowing. Mild diffuse disc bulging and mild disc height reduction. IMPRESSION: 1. Multilevel moderate-marked central canal and bilateral foramen narrowing as detailed above. The greatest degree of narrowing occurs within the C5-C6 left neural foramen. Electronically authenticated by: HOOD FAYE Date: 2022-02-15 12:51 Normal [facility] Lipid Panelon 09-29-2020 Cholesterol [Mass/Vol] 181 mg/dL <200 [place], [place] Comment on above: Cholesterol Guidelines: <200 Desirable 200-240 Borderline >240 Undesirable Cholesterol in HDL [Mass/Vol] 55 mg/dL >40 [place], [place] Comment on above: HDL Guidelines: <40 Undesirable 40-59 Borderline >59 Desirable Cholesterol in LDL [Mass/Vol] 113 mg/dL 0 - 13 0 mg/dL [place], [place] Comment on above: LDL Guidelines: <100 Desirable 100-129 Near to/above Desirable 130-159 Borderline >159 Undesirable Direct (measured) LDL and calculated LDL are not interchangeable tests. Cholesterol in VLDL [Mass/Vol] NOT REPORTED 1 - 30 mg/dL [place] Cholesterol.total/Cholestero l in HDL [Mass ratio] 3.3 {ratio} <5 [place] Triglyceride [Mass/Vol] 67 mg/dL <150 M [place], [place] Comment on above: Triglyceride Guidelines: <150 Desirable 150-199 Borderline 200-499 High >499 Very high Based on AHA Guidelines for fasting triglyceride, June 2012. Lipid Profileon 09-29-2020 Cholesterol [Mass/Vol] 181 mg/dL Normal <200 [facility] Comment on above: Result Comment: Cholesterol Guidelines: <200 Desirable 200-240 Borderline >240 Undesirable Performed By: #### L IPR #### [facility] [address] [place] [address] [id number] Junior Project Manager: Darien Sandhu MD Cholesterol in HDL [Mass/Vol] 55 mg/dL Normal >40 [facility] Comment on above: Result Comment: HDL Guidelines: <40 Undesirable 40-59 Borderline >59 Desirable Performed By: #### L IPR #### [facility] [address] [place] [address] [phone] Junior Project Manager: Darien Sandhu MD Cholesterol in LDL [Mass/Vol] 113 mg/dL Normal 0-130 [facility] Comment on above: Result Comment: LDL Guidelines: <100 Desirable 100-129 Near to/above Desirable 130-159 Borderline >159 Undesirable Direct (measured) LDL and calculated LDL are not interchangeable tests. Performed By: #### L IPR #### [id number] [place] [address] Junior Project Manager: Darien Sandhu MD Cholesterol.total/Cholestero l in HDL [Mass ratio] 3.3 {ratio} Normal <5 [facility]ital Comment on above: Performed By: #### L IPR #### [address] [address] Junior Project Manager: Darien Sandhu MD Triglyceride [Mass/Vol] 67 mg/dL Normal <150 [facility] Comment on above: Result Comment: Triglyceride Guidelines: <150 Desirable 150-199 Borderline 200-499 High >499 Very high Based on AHA Guidelines for fasting triglyceride, June 2012. Performed By: #### L IPR #### [address] [address] Junior Project Manager: Darien Sandhu MD Cholesterol in VLDL [Mass/Vol] NOT REPORTED Normal 1-3 0 [facility] Comment on above: Performed By: #### L IPR #### [address] [address] Junior Project Manager: Darien Sandhu MD Cult,Urineon 09-22-2020 Cult,Urine Specimen Description .VOIDED URINE Special Requests NOT REPORTED Culture NO SIGNIFICANT GROWTH Report Status FINAL 09/22/2020 Normal [facility] Comment on above: Performed By: #### U RC #### [address] [address] Junior Project Manager: Darien Sandhu MD [facility] [address] [place] [address] Junior Project Manager: Macrina Brown MD Lipid Panelon 09-22-2020 Cholesterol [Mass/Vol] 150 mg/dL <200 [facility] Comment on above: Cholesterol Guidelines: <200 Desirable 200-240 Borderline >240 Undesirable Cholesterol in HDL [Mass/Vol] 44 mg/dL >40 [place] Comment on above: HDL Guidelines: <40 Undesirable 40-59 Borderline >59 Desirable Cholesterol in LDL [Mass/Vol] 90 mg/dL 0 - 13 0 mg/dL [place] Comment on above: LDL Guidelines: <100 Desirable 100-129 Near to/above Desirable 130-159 Borderline >159 Undesirable Direct (measured) LDL and calculated LDL are not interchangeable tests. Cholesterol in VLDL [Mass/Vol] NOT REPORTED 1 - 30 mg/dL [place] Cholesterol.total/Cholestero l in HDL [Mass ratio] 3.4 {ratio} <5 [place] Triglyceride [Mass/Vol] 79 mg/dL <150 [place] Comment on above: Triglyceride Guidelines: <150 Desirable 150-199 Borderline 200-499 High >499 Very high Based on AHA Guidelines for fasting triglyceride, June 2012. Lipid Profileon 09-22-2020 Cholesterol [Mass/Vol] 150 mg/dL Normal <200 [facility] Comment on above: Result Comment: Cholesterol Guidelines: <200 Desirable 200-240 Borderline >240 Undesirable Performed By: #### B C #### [facility] [address] [place] [address] [place] [address] Junior Project Manager: Macrina Brown MD Cholesterol in HDL [Mass/Vol] 44 mg/dL Normal >40 [facility] Comment on above: Result Comment: HDL Guidelines: <40 Undesirable 40-59 Borderline >59 Desirable Performed By: #### B C #### [facility] [address] [place] [address] Junior Project Manager: Macrina Brown MD Cholesterol in LDL [Mass/Vol] 90 mg/dL Normal 0-130 [facility] Comment on above: Result Comment: LDL Guidelines: <100 Desirable 100-129 Near to/above Desirable 130-159 Borderline >159 Undesirable Direct (measured) LDL and calculated LDL are not interchangeable tests. Performed By: #### B C #### [facility] [address] [place] [address] [place] [address] Junior Project Manager: Macrina Brown MD Cholesterol.total/Cholestero l in HDL [Mass ratio] 3.4 {ratio} Normal <5 [facility] Comment on above: Performed By: #### B C #### [facility] [address] [place] [address] Junior Project Manager: Macrina Brown MD Triglyceride [Mass/Vol] 79 mg/dL Normal <150 [facility] Comment on above: Result Comment: Triglyceride Guidelines: <150 Desirable 150-199 Borderline 200-499 High >499 Very high Based on AHA Guidelines for fasting triglyceride, June 2012. Performed By: #### B C #### [facility] [address] [place] [address] [place] [address] Junior Project Manager: Macrina Brown MD Cholesterol in VLDL [Mass/Vol] NOT REPORTED Normal 1-3 0 [facility] Comment on above: Performed By: #### B C #### [facility] [address] [place] [address] Junior Project Manager: Macrina Brown MD Microscopic Urinalysison Amorphous, UA NOT REPORTED None [facility], [place] Bacteria, UA 1+ Abnormal None [place] Casts UA NOT REPORTED /LPF [place] Crystals, UA NOT REPORTED None /HPF [facility], [place] Epithelial Cells UA 0 TO 2 [place] Interpretation and review of laboratory results Abnormal [place] Mucus, UA NOT REPORTED None [place] Other Observations UA NOT REPORTED NOT REQ. M [place] RBC (U) [#/Vol] None [facility] Renal Epithelial, UA NOT REPORTED 0 /HPF [place], [place] Trichomonas, UA NOT REPORTED None [facility] [place] WBC, UA 10 TO 20 [place] Yeast, UA NOT REPORTED None [place] - [place] UA w/Reflex Cultureon 2019 Acetoacetic Acid,Ur Negative Normal NEG [facility] Comment on above: Performed By: #### F EBC #### [address] [address] Junior Project Manager: Darien Sandhu MD Bilirubin, SemiQt,Ur Negative Normal NEG [facility] Comment on above: Performed By: #### F EBC #### [address] [address] Junior Project Manager: Darien Sandhu MD Color (U) YELLOW Normal YEL [facility] Comment on above: Performed By: #### F EBC #### [address] [address] Junior Project Manager: Darien Sandhu MD Glucose Ql (U) Negative Normal NEG [facility] in Hospital Comment on above: Performed By: #### F EBC #### [address] [address] Junior Project Manager: Darien Sandhu MD Hemoglobin, Ur Negative Normal NEG [facility] Comment on above: Performed By: #### F EBC #### [address] [address] Junior Project Manager: Darien Sandhu MD Leukocyte esterase Test strip Ql (U) MODERATE Abnormal NEG [facility] Comment on above: Performed By: #### F EBC #### [address] [address] Junior Project Manager: Darien Sandhu MD Nitrite,Ur Negative Normal NEG [facility] Comment on above: Performed By: #### F EBC #### [address] [address] Junior Project Manager: Darien Sandhu MD pH (U) 6.5 [pH] Normal 5.0-9.0 [facility] Comment on above: Performed By: #### F EBC #### [address] [place] [address] Junior Project Manager: Darien Sandhu MD Protein Ql (U) Negative Normal NEG [facility] Comment on above: Performed By: #### F EBC #### [facility] [place] [address] Junior Project Manager: Darien Sandhu MD Specific gravity (U) [Rel density] 1.020 Normal 1 .010-1.020 [facility] Comment on above: Performed By: #### F EBC #### [facility] [address] [place] [address] Junior Project Manager: Darien Sandhu MD Turbidity CLEAR Normal CLEAR [facility] Comment on above: Performed By: #### F EBC #### [facility] [employer] [address] [place] [address] Junior Project Manager: Darien Sandhu MD Urobilinogen,Ur Normal Normal NORM [facility] Comment on above: Performed By: #### F EBC #### [facility] [address] [place] [address] Junior Project Manager: Darien Sandhu MD Comment NOT REPORTED Normal [facility] Comment on above: Performed By: #### F EBC #### [facility] [employer] [address] [place] [address] Junior Project Manager: Darien Sandhu MD Urinalysis Reflex to Culture on 09-20-2020 Bilirubin Urine Negative NEGATIVE [facility] Color, UA YELLOW YELLOW [facility] [place] Glucose, Ur Negative NEGATIVE [facility] [place] Interpretation and review of laboratory results Abnormal [facility] [place] Ketones Ql (U) Negative NEGATIVE [facility] [place] Leukocyte esterase Test stri p Ql (U) MODERATE Abnormal NEGATIVE [facility]- [place] , [place] Nitrite, Urine Negative NEGATIVE [facility] pH, UA 6.5 [facility] [place] Protein (U) [Mass/Vol] Negative NEGATIVE [facility]- [place] Specific [place], UA 1.020 [place], [place] Turbidity UA CLEAR CLEAR [place] Urinalysis Comments NOT REPORTED [place] Urine Hgb Negative NEGATIVE [place] Urobilinogen, Urine Normal Normal [place] Urinalysis,Microon 0 ----- Normal [facility] Comment on above: Performed By: #### F EBC #### [address] [address] Junior Project Manager: Darien Sandhu MD Bacteria LM.HPF (Urine sed) [#/Area] 1+ Abnormal [facility] Comment on above: Performed By: #### F EBC #### [address] [address] Junior Project Manager: Darien Sandhu MD Epithelial cells LM.HPF (Urine sed) [#/Area] 0 TO 2 No rmal 0-25 [facility] Comment on above: Performed By: #### F EBC #### [address] [address] Junior Project Manager: Darien Sandhu MD RBC (U) [#/Vol] None Normal 0-2 [facility] Comment on above: Performed By: #### F EBC #### [address] [address] Junior Project Manager: Darien Sandhu MD WBC (U) [#/Vol] 10 TO 20 Normal 0-5 [facility] Comment on above: Performed By: #### F EBC #### [address] [address] Junior Project Manager: Darien Sandhu MD Amorphous sediment LM Ql (Urine sed) NOT REPORTED Normal [facility] Comment on above: Performed By: #### F EBC #### [address] [address] Junior Project Manager: Darien Sandhu MD Casts LM.LPF (Urine sed) [#/Area] NOT REPORTED Normal [facility] Comment on above: Performed By: #### F EBC #### [facility] [address] [place] [phone] Junior Project Manager: Darien Sandhu MD Crystals LM Nom (Urine sed) NOT REPORTED Normal NONE [facility] Comment on above: Performed By: #### F EBC #### [facility] [address] [address] Junior Project Manager: Darien Sandhu MD Epithelial, Renal NOT REPORTED Normal 0 [facility] Comment on above: Performed By: #### F EBC #### [address] [address] Junior Project Manager: Darien Sandhu MD Mucus Strands NOT REPORTED Normal NONE [facility] Comment on above: Performed By: #### F EBC #### [facility] [address] [address] Junior Project Manager: Darien Sandhu MD Other Observations NOT REPORTED Normal NREQ [facility] Comment on above: Performed By: #### F EBC #### [address] [address] Junior Project Manager: Darien Sandhu MD Trichomonas NOT REPORTED Normal NONE [facility] Comment on above: Performed By: #### F EBC #### [facility] [address] [address] Junior Project Manager: Darien Sandhu MD Yeast LM Ql (Urine sed) NOT REPORTED Normal [facility] Comment on above: Performed By: #### F EBC #### [address] [address] Junior Project Manager: Darien Sandhu MD Cult,Bloodon 09-19-2020 Cult,Blood Specimen Description .BLOOD Special Requests L HAND 3ML Culture NO GROWTH 5 DAYS Report Status FINAL 09/19/2020 Normal [facility] Comment on above: Performed By: #### B C #### [facility] [address] [place], [place] [id number] Junior Project Manager: Macrina Brown MD Cult,Blood Specimen Description .BLOOD Special Requests L AC 20ML Culture NO GROWTH 5 DAYS Report Status FINAL 09/19/2020 [facility] Comment on above: Performed By: #### B C #### [facility] [address] [place], [place] [id number] Junior Project Manager: Macrina Brown MD Cult,Urineon 09-15-2020 Cult,Urine Specimen Description .CATHETER Special Requests NOT REPORTED Culture NO GROWTH Report Status FINAL 09/15/2020 [facility] Comment on above: Performed By: #### B C #### [facility] [address] [place] [phone] Junior Project Manager: Macrina Brown MD Acetaminophenon 09-14-2020 Acetaminophen [Mass/Vol] <5 Low 10-30 [facility] Comment on above: Performed By: #### A LCB, ACET #### [facility] [address] [place] [address] Junior Project Manager: Macrina Brown MD Acetaminophen levelon 2019 Acetaminophen [Mass/Vol] <5 Low 10 - 30 ug/ mL [place] Interpretation and review of laboratory results Abnormal [place] Ammoniaon 09-14-2020 Ammonia (P) [Mass/Vol] 18 umol/L Normal 11-41 [facility] Comment on above: Performed By: #### B C #### [facility] [address] [place] [address] Junior Project Manager: Macrina Brown MD Ammonia (P) [Mass/Vol] 18 umol/L 11 - 41 umol/ L [place] B12/Folate Panelon 0 Cobalamin (Vitamin B12) [Mass/Vol] 599 pg/mL Normal 2 32-1245 [facility] Comment on above: Performed By: #### B 12FOL #### [facility] [address] [place] [address] Junior Project Manager: Darien Sandhu MD Folic Acid 6.4 ng/mL Normal >4.8 [facility] Comment on above: Performed By: #### B 12FOL #### [facility] [address] [place] [address] Junior Project Manager: Darien Sandhu MD Blood gas, venouson 09-14-20 20 Edilberto Test NOT REPORTED [place] aPTT Coag (Bld) [Time] 37.0 s Me [place] Carboxyhemoglobin NOT REPORTED 0 - 5 % [place] FIO2 NOT REPORTED [place] HCO3, Venous 26.7 mmol/L 24 - 30 mmol/L [place], [place] Interpretation and review of laboratory results Abnormal [place] Methemoglobin NOT REPORTED 0 - 1.9 % [place] Mode NOT REPORTED [place] Negative Base Excess, [place] NOT REPORTED 0 - 2 mm ol/L [place] NOTIFICATION NOT REPORTED [facility] NOTIFICATION TIME NOT REPORTED [place] O2 Device/Flow/% NOT REPORTED [place] Oxygen saturation in Blood 55.2 % Low 60 - 85 % [place] Oxyhemoglobin NOT REPORTED 95 - 98 % [place] pCO2, Tyrell 45.3 [place] pCO2, [place], Temp Adj NOT REPORTED [place] Peep/Cpap NOT REPORTED [place] pH, Tyrell 7.388 [place] pH, [place], Temp Adj NOT REPORTED [place] pO2, [place] 29.6 Low [place] pO2, [place], Temp Adj NOT REPORTED [place] Positive Base Excess, Tyrell 1.2 mmol/L 0 - 2 mmol /L [place] PSV NOT REPORTED [place] Pt. Position NOT REPORTED [facility] [place] Sample Site NOT [place]PORTED [place] Set Rate NOT REPORTED [place] Text for Respiratory NOT REPORTED [place] Total Hb NOT REPORTED 12 - 16 g/dl [place], [place] Total Rate NOT REPORTED [place] VT NOT REPORTED [place] CBC auto differentialon 08-25 Basophils (Bld) [#/Vol] 0.05 10*3/uL [place] Basophils/100 WBC (Bld) 1 % 0 - 2 % M [place] Differential Type NOT REPORTED [place] Eosinophils (Bld) [#/Vol] 0.08 10*3/uL [place] Eosinophils/100 WBC (Bld) 1 % 1 - 4 % [place] Erythrocyte distribution width (RBC) [Ratio] 13.7 % 11.8 - 14.4 % [place] Hematocrit (Bld) [Volume fraction] 34.5 % Low 36.3 - 47.1 % [place] Hemoglobin (Bld) [Mass/Vol] 10.9 g/dL Low 11.9 - 1 5.1 g/dL [place] Immature granulocytes (Bld) [#/Vol] 0 % 0 [place] Immature granulocytes (Bld) [#/Vol] 10*3/uL [place] Interpretation and review of laboratory results Abnormal [place] Lymphocytes (Bld) [#/Vol] 2.48 10*3/uL [place] Lymphocytes/100 WBC (Bld) 45 % High 24 - 43 % [place] MCH (RBC) [Entitic mass] 27.7 pg 25.2 - 33.5 pg [place] MCHC (RBC) [Mass/Vol] 31.6 g/dL 28.4 - 34.8 g/ dL [place] MCV (RBC) [Entitic vol] 87.8 fL 82.6 - 102.9 fL [place] Monocytes (Bld) [#/Vol] 0.29 10*3/uL [place] Monocytes/100 WBC (Bld) 5 % 3 - 12 % [place], [place] Platelet mean volume (Bld) [Entitic vol] 11.8 fL 8.1 - 13.5 fL [place] Platelets (Bld) [#/Vol] 242 10*3/uL [place] Platelets (Bld) [#/Vol] NOT REPORTED [place] RBC (Bld) [#/Vol] 3.93 10*6/uL Low 3.95 - 5.11 m/uL [place] RBC morphology finding Nom (Bld) NOT REPORTED [place] Segmented neutrophils/100 WB C (Bld) 48 % 36 - 65 % [place] Segs Absolute 2.62 [place] WBC (Bld) [#/Vol] 0.0 10*3/uL 0.0 per 100 WBC [place], [place] WBC (Bld) [#/Vol] 5.5 10*3/uL [place] WBC Morphology NOT REPORTED [place], [place] CBC with Diffon 09-14-2020 Abs. Basophil 0.05 k/uL Normal 0.00-0.20 [facility] Comment on above: Performed By: #### Diana CARLOS CP, TROPI, CDP #### [address] [place] [address] Junior Project Manager: Macrina Brown MD Abs.Imm.Granulocyte <0.03 Normal 0.00-0.30 [facility] Comment on above: Performed By: #### Diana CARLOS CP, TROPI, CDP #### [facility] [address] [place] [address] Junior Project Manager: Macrina Brown MD Abs.Neutrophil (Seg) 2.62 k/uL Normal 1.50-8.10 [facility] Comment on above: Performed By: #### Diana CARLOS CP, TROPI, CDP #### [facility] [address] [place] [address] Junior Project Manager: Macrina Brown MD Basophils/100 WBC (Bld) 1 % Normal 0-2 [facility] Comment on above: Performed By: #### S MAKAYLA CARLOS, TROPI, CDP #### [address] [place], [place] [phone] Junior Project Manager: Macrina Brown MD Eosinophils (Bld) [#/Vol] 0.08 10*3/uL Normal 0.00-0.4 4 [facility] Comment on above: Performed By: #### Diana CARLOS CP, TROPI, CDP #### [address] [place], [place] [phone] Junior Project Manager: Macrina Brown MD Eosinophils/100 WBC (Bld) 1 % Normal 1-4 [facility] Comment on above: Performed By: #### Diana CARLOS CP, TROPI, CDP #### [address] [place], [place] [address] Junior Project Manager: Macrina Brown MD Erythrocyte distribution wid th (RBC) [Ratio] 13.7 % Normal 11.8-14.4 [facility] Comment on above: Performed By: #### Diana CARLOS CP, TROPI, CDP #### [address] [place], [place] [phone] Junior Project Manager: Macrina Brown MD Hematocrit (Bld) [Volume fraction] 34.5 % Low 3 6.3-47.1 [facility] Comment on above: Performed By: #### Diana CARLOS CP, TROPI, CDP #### [address] [place], [place] [phone] Junior Project Manager: Macrina Brown MD Hemoglobin (Bld) [Mass/Vol] 10.9 g/dL Low 11.9-15. 1 [facility] Comment on above: Performed By: #### S MAKAYLA CARLOS, TROPI, CDP #### [address] [place], [place] [phone] Junior Project Manager: Macrina Brown MD Immature granulocytes (Bld) [#/Vol] 0 % Normal 0 [facility] Comment on above: Performed By: #### Diana CARLOS CP TROPI, CDP #### [facility] [address] [place] [address] Junior Project Manager: Macrina Brown MD Lymphocytes (Bld) [#/Vol] 2.48 10*3/uL Normal 1.10-3.7 0 [facility] Comment on above: Performed By: #### Diana CARLOS CP, TROPI, CDP #### [facility] [address] [place] [address] Junior Project Manager: Macrina Brown MD Lymphocytes/100 WBC (Bld) 45 % High 24-43 [facility] Comment on above: Performed By: #### Diana CARLOS CP TROPI, CDP #### [address] [place], [facility] Junior Project Manager: Macrina Brown MD MCH (RBC) [Entitic mass] 27.7 pg Normal 25.2-33.5 [facility] Comment on above: Performed By: #### Diana CARLOS CP TROPI, CDP #### [address] [place] [phone] Junior Project Manager: Macrina Brown MD MCHC (RBC) [Mass/Vol] 31.6 g/dL Normal 28.4-34.8 [facility] Comment on above: Performed By: #### Diana CARLOS CP, TROPI, CDP #### [address] [place] [address] Junior Project Manager: Macrina Brown MD MCV (RBC) [Entitic vol] 87.8 fL Normal 82.6-102.9 [facility] Comment on above: Performed By: #### Diana CARLOS CP, TROPI, CDP #### [address] [place], [facility] Junior Project Manager: Macrina Brown MD Monocytes (Bld) [#/Vol] 0.29 10*3/uL Normal 0.10-1.20 [facility] Comment on above: Performed By: #### S ALI CP, TROPI, CDP #### [facility] [address] [place], [facility] Junior Project Manager: Macrina Brown MD Monocytes/100 WBC (Bld) 5 % Normal 3-12 [facility] Comment on above: Performed By: #### S RIDDHI CP, TROPI, CDP #### [address] [place] [address] Junior Project Manager: Macrina Brown MD Neutrophil (Seg) 48 % Normal 36-65 [facility] Comment on above: Performed By: #### Diana CARLOS CP, TROPI, CDP #### [address] [place], [place] [address] Junior Project Manager: Macrina Brown MD NRBC Automated 0.0 per 100 WBC Normal 0.0 [facility] Comment on above: Performed By: #### Diana CARLOS CP, TROPI, CDP #### [address] [place], [facility] Junior Project Manager: Macrina Brown MD Platelet mean volume (Bld) [ Entitic vol] 11.8 fL Normal 8.1-13.5 [facility] Comment on above: Performed By: #### S RIDDHI CP, TROPI, CDP #### [address] [place], [facility] Junior Project Manager: Macrina Brown MD Platelets (Bld) [#/Vol] 242 10*3/uL Normal 138-453 [facility] Comment on above: Performed By: #### S RIDDHI CP, TROPI, CDP #### [address] [place], [place] [phone] Junior Project Manager: Macrina Brown MD RBC (Bld) [#/Vol] 3.93 10*6/uL Low 3.95-5.11 [facility] Comment on above: Performed By: #### S ALI CP, TROPI, CDP #### [facility] [address] [place] [address] [place] [address] Junior Project Manager: Macrina Brown MD WBC (Bld) [#/Vol] 5.5 10*3/uL Normal 3.5-11.3 [facility] Comment on above: Performed By: #### S RIDDHI CP, TROPI, CDP #### [address] [place] [address] Junior Project Manager: Macrina Brown MD Auto Diff Performed NOT REPORTED Normal [facility] Comment on above: Performed By: #### S MAKAYLA CARLOS, TROPI, CDP #### [address] [place] [address] Junior Project Manager: Macrina Brown MD Platelets (Bld) [#/Vol] NOT REPORTED Normal [facility] Comment on above: Performed By: #### S MAKAYLA CARLOS, TROPI, CDP #### [address] [place] [address] Junior Project Manager: Macrina Brwon MD RBC morphology finding Nom (Bld) NOT REPORTED Normal [facility] Comment on above: Performed By: #### S ALI CP, TROPI, CDP #### [facility] [address] [place] [address] [place] [address] Junior Project Manager: Macrina Brown MD WBC Morphology NOT REPORTED Normal [facility] Comment on above: Performed By: #### S ALI CP, TROPI, CDP #### [facility] [address] [place] [address] [place] [address] Junior Project Manager: Macrina Brown MD COVID-19on 09-14-2020 SARS-CoV-2, Rapid Not Detected Not Detected [place], [place] Comment on above: Rapid NAAT: The specimen is NEGATIVE for SARS-CoV-2, the novel coronavirus associated with COVID-19. The ID NOW COVID-19 assay is designed to detect the virus that causes COVID-19 in patients with signs and symptoms of infection who are suspected of COVID-19. An individual without symptoms of COVID-19 and who is not shedding SARS-CoV-2 virus would expect to have a negative (not detected) result in this assay. Negative results should be treated as presumptive and, if inconsistent with clinical signs and symptoms or necessary for patient management, should be tested with an alternative molecular assay. Negative results do not preclude SARS-CoV-2 infection and should not be used as the sole basis for patient management decisions. Fact sheet for Healthcare Providers: https://www.fda.gov/media/532118/download Fact sheet for Patients: https://www.fda.gov/media/707506/download Methodology: Isothermal Nucleic Acid Amplification Source .NASOPHARYNGEAL SWAB [place], [place] CT HEAD WO CONTRASTon 2019 CT HEAD WO CONTRAST EXAMINATION: CT OF THE HEAD WITHOUT CONTRAST 09/14/2020 3:56 am TECHNIQUE: CT of the head was performed without the administration of intravenous contrast. Dose modulation, iterative reconstruction, and/or weight based adjustment of the mA/kV was utilized to reduce the radiation dose to as low as reasonably achievable. COMPARISON: July 25, 2011. HISTORY: ORDERING SYSTEM PROVIDED HISTORY: altered mental status TECHNOLOGIST PROVIDED HISTORY: altered mental status FINDINGS: BRAIN/VENTRICLES: There is no acute intracranial hemorrhage, mass effect or midline shift. No abnormal extra-axial fluid collection. The godinez-white differentiation is maintained without evidence of an acute infarct. There is no evidence of hydrocephalus. Generalized cerebral and cerebellar volume loss is progressed compared to CT head done July 25, 2011. Mild ill-defined periventricular white matter hypoattenuation can be seen in the setting of mild chronic small vessel ischemic disease. ORBITS: The visualized portion of the orbits demonstrate no acute abnormality. SINUSES: Small amount of fluid in left mastoid air cells. The visualized paranasal sinuses and right mastoid air cells demonstrate no acute abnormality. SOFT TISSUES/SKULL: No acute abnormality of the visualized skull or soft tissues. IMPRESSION: No acute intracranial abnormality. Specifically, no acute intracranial hemorrhage or mass effect. Interpreted by: Williams Thorpe DO Signed by: Williams Thorpe DO 09/14/20 Final result Normal Lynn Sam l CT Head WO Contraston 2019 No acute intracrania l abnormality. Specifically, no acute intracranial hemorrhage or mass effect. [facility] SUMMER Albert, Mhpn Incoming R adiant Results From [facility] - 09/14/2020 4:54 AM EST EXAMINATION: CT OF THE HEAD WITHOUT CONTRAST 09/14/2020 3:56 am TECHNIQUE: CT of the head was performed without the administration of intravenous contrast. Dose modulation, iterative reconstruction, and/or weight based adjustment of the mA/kV was utilized to reduce the radiation dose to as low as reasonably achievable. COMPARISON: July 25, 2011. HISTORY: ORDERING SYSTEM PROVIDED HISTORY: altered mental status TECHNOLOGIST PROVIDED HISTORY: altered mental status FINDINGS: BRAIN/VENTRICLES: There is no acute intracranial hemorrhage, mass effect or midline shift. No abnormal extra-axial fluid collection. The godinez-white differentiation is maintained without evidence of an acute infarct. There is no evidence of hydrocephalus. Generalized cerebral and cerebellar volume loss is progressed compared to CT head done July 25, 2011. Mild ill-defined periventricular white matter hypoattenuation can be seen in the setting of mild chronic small vessel ischemic disease. ORBITS: The visualized portion of the orbits demonstrate no acute abnormality. SINUSES: Small amount of fluid in left mastoid air cells. The visualized paranasal sinuses and right mastoid air cells demonstrate no acute abnormality. SOFT TISSUES/SKULL: No acute abnormality of the visualized skull or soft tissues. IMPRESSION: No acute intracranial abnormality. Specifically, no acute intracranial hemorrhage or mass effect. [facility] EXAMINATION: CT OF T HE HEAD WITHOUT CONTRAST 09/14/2020 3:56 am TECHNIQUE: CT of the head was performed without the administration of intravenous contrast. Dose modulation, iterative reconstruction, and/or weight based adjustment of the mA/kV was utilized to reduce the radiation dose to as low as reasonably achievable. COMPARISON: July 25, 2011. HISTORY: ORDERING SYSTEM PROVIDED HISTORY: altered mental status TECHNOLOGIST PROVIDED HISTORY: altered mental status FINDINGS: BRAIN/VENTRICLES: There is no acute intracranial hemorrhage, mass effect or midline shift. No abnormal extra-axial fluid collection. The godinez-white differentiation is maintained without evidence of an acute infarct. There is no evidence of hydrocephalus. Generalized cerebral and cerebellar volume loss is progressed compared to CT head done July 25, 2011. Mild ill-defined periventricular white matter hypoattenuation can be seen in the setting of mild chronic small vessel ischemic disease. ORBITS: The visualized portion of the orbits demonstrate no acute abnormality. SINUSES: Small amount of fluid in left mastoid air cells. The visualized paranasal sinuses and right mastoid air cells demonstrate no acute abnormality. SOFT TISSUES/SKULL: No acute abnormality of the visualized skull or soft tissues. [facility], [place] Comp Metabolic Profon 2019 (cont.) Normal [facility] ospital Comment on above: Result Comment: Aver age GFR for 50-59 years old: 93 mL/min/1.73sq m Chronic Kidney Disease: <60 mL/min/1.73sq m Kidney failure: <15 mL/min/1.73sq m eGFR calculated using average adult body mass. Additional eGFR calculator available at: http://www.ZeroFOX/multiple_crcl_2011.htm Performed By: #### Diana CARLOS CP, TROPI, CDP #### [address] [place] [place] [address] Junior Project Manager: Macrina Brown MD Albumin [Mass/Vol] 3.8 g/dL Normal 3.5-5.2 [facility] Comment on above: Performed By: #### Diana CARLOS CP, TROPI, CDP #### [address] [place] [address] Junior Project Manager: Macrina Brown MD Albumin/Globulin [Mass ratio] 1.2 {ratio} Normal 1.0-2 .5 [facility] Comment on above: Performed By: #### Diana CARLOS CP, TROPI, CDP #### [address] [place] [address] Junior Project Manager: Macrina Brown MD Alkaline Phos 53 U/L Normal 35-104 [facility] Comment on above: Performed By: #### Diana CARLOS CP, TROPI, CDP #### [address] [place], [place] [phone] Junior Project Manager: Macrina Brown MD ALT [Catalytic activity/Vol] 7 U/L Normal 5-33 [facility] Comment on above: Performed By: #### S ALI, CP, TROPI, CDP #### [facility] [address] [place] [address] [address] [place], [place] [phone] Junior Project Manager: Macrina Brown MD Anion gap [Moles/Vol] 10 mmol/L Normal 9-17 [facility] Comment on above: Performed By: #### S ALI, CP, TROPI, CDP #### [address] [place], [place] [phone] Junior Project Manager: Macrina Brown MD AST [Catalytic activity/Vol] 17 U/L Normal <32 [facility] Comment on above: Performed By: #### S RIDDHI CP, TROPI, CDP #### [address] [place], [place] [phone] Junior Project Manager: Macrina Brown MD Bilirubin Ql (U) 0.60 mg/dL Normal 0.3-1.2 [facility] Comment on above: Performed By: #### S RIDDHI CP, TROPI, CDP #### [address] [place], [place] [phone] Junior Project Manager: Macrina Brown MD BUN/CRE Ratio 31 High 9-20 [facility] Comment on above: Performed By: #### S ALI CP, TROPI, CDP #### [facility] [address] [place] [address] [address] [place], [place] [phone] Junior Project Manager: Macrina Brown MD Calcium [Mass/Vol] 9.7 mg/dL Normal 8.6-10.4 [facility] Comment on above: Performed By: #### S RIDDHI CP, TROPI, CDP #### [facility] [address] [place] [address] [address] [place], [place] [phone] Junior Project Manager: Macrina Brown MD Chloride [Moles/Vol] 100 mmol/L Normal 98-107 [facility] Comment on above: Performed By: #### S MAKAYLA CARLOS, TROPI, CDP #### [facility] [address] [place], [place] [id number] Junior Project Manager: Macrina Brown MD CO2 [Moles/Vol] 26 mmol/L Normal 20-31 [facility] Comment on above: Performed By: #### S MAKAYLA CARLOS, TROPI, CDP #### [facility] [address] [place], [place] [phone] Junior Project Manager: Macrina Brown MD Creatinine [Mass/Vol] 0.68 mg/dL Normal 0.50-0.90 [facility] Comment on above: Performed By: #### S MAKAYLA CARLOS, TROPI, CDP #### [facility] [address] [place], [place] [phone] Junior Project Manager: Macrina Brown MD GFR, Amer >60 Normal >60 [facility] Comment on above: Performed By: #### Diana CARLOS CP, TROPI, CDP #### [facility] [address] [place], [place] [phone] Junior Project Manager: Macrina Brown MD GFR,non Amer >60 Normal >60 [facility] Comment on above: Performed By: #### Diana CARLOS CP, TROPI, CDP #### [facility] [address] [place], [place] [phone] Junior Project Manager: Macrina Brown MD Glucose [Mass/Vol] 101 mg/dL High 70-99 [facility] Comment on above: Performed By: #### Diana CARLOS CP, TROPI, CDP #### [facility] [address] [place] [address] Junior Project Manager: Macrina Brown MD Potassium [Moles/Vol] 3.9 mmol/L Normal 3.7-5.3 [facility] Comment on above: Performed By: #### Diana CARLOS CP, TROPI, CDP #### [facility] [address] [place], [place] [phone] Junior Project Manager: Macrina Brown MD Protein [Mass/Vol] 7.1 g/dL Normal 6.4-8.3 [facility] Comment on above: Performed By: #### Diana CARLOS CP, TROPI, CDP #### [facility] [address] [place], [place] [phone] Junior Project Manager: Macrina Brown MD Sodium [Moles/Vol] 136 mmol/L Normal 135-144 [facility] Comment on above: Performed By: #### Diana CARLOS CP, TROPI, CDP #### [address] [place], [place] [phone] Junior Project Manager: Macrina Brown MD Staging: Normal [facility] Comment on above: Result Comment: Stag e 1: Some kidney damage normal GFR Stage 2: Mild kidney damage GFR 60-89 Stage 3: Moderate kidney damage GFR 30-59 Stage 4: Severe kidney damage GFR 15-29 Stage 5: Severe kidney damage GFR <15 ESRD - chronic treatment by dialysis or transplant Performed By: #### Diana CARLOS CP, TROPI, CDP #### [address] [place], [place] [phone] Junior Project Manager: Macrina Brown MD Urea nitrogen [Mass/Vol] 21 mg/dL High 6-20 [facility] Comment on above: Performed By: #### Diana CARLOS CP, TROPI, CDP #### [facility] [address] [place] [address] Junior Project Manager: Macrina Brown MD Comprehensive Metabolic P[facility] 09-14-2020 Albumin [Mass/Vol] 3.8 g/dL 3.5 - 5.2 g/dL [facility] Albumin/Globulin [Mass ratio] 1.2 {ratio} [place] ALP [Catalytic activity/Vol] 53 U/L 35 - 10 4 U/L [place] ALT [Catalytic activity/Vol] 7 U/L 5 - 33 U/L [place] Anion gap [Moles/Vol] 10 mmol/L 9 - 17 mmol/L [place] AST [Catalytic activity/Vol] 17 U/L <32 [place] Bilirubin Ql (U) 0.60 mg/dL 0.3 - 1.2 mg/dL [place] Bun/Cre Ratio 31 High [place] Calcium [Mass/Vol] 9.7 mg/dL 8.6 - 10.4 mg/dL [place] Chloride [Moles/Vol] 100 mmol/L 98 - 107 mmol/L [place] CO2 [Moles/Vol] 26 mmol/L 20 - 31 mmol/L [place] Creatinine [Mass/Vol] 0.68 mg/dL 0.5 - 0.9 mg/d L [place] GFR >60 >60 mL/min [place] GFR Non- >60 >60 mL/min [place] Glucose [Mass/Vol] 101 mg/dL High 70 - 99 mg/dL [place] Potassium [Moles/Vol] 3.9 mmol/L 3.7 - 5.3 mmol /L [place] Protein [Mass/Vol] 7.1 g/dL 6.4 - 8.3 g/dL [place], [place] Sodium [Moles/Vol] 136 mmol/L 135 - 144 mmol/L [place] Urea nitrogen [Mass/Vol] 21 mg/dL High 6 - 20 mg/d L [place] Drug Scr, Abuse, Uron 2019 Amphetamine(s),Ur Negative Normal NEG [facility] Comment on above: Performed By: #### F EB #### [facility] [employer] [facility] [place], [place] [phone] Junior Project Manager: Darien Sandhu MD Barbiturate(s),Ur Negative Normal NEG [facility] Comment on above: Performed By: #### F EBC #### [address] [address] Junior Project Manager: Darien Sandhu MD Base excess Calc (Bld) [Moles/Vol] Negative Normal N EG [facility] Comment on above: Performed By: #### F EBC #### [address] [address] Junior Project Manager: Darien Sandhu MD Benzodiazepine(s) Negative Normal NEG [facility] Comment on above: Performed By: #### F EBC #### [address] [address] Junior Project Manager: Darien Sandhu MD Buprenorphrine, Ur Negative Normal NEG [facility] Comment on above: Performed By: #### F EBC #### [address] [address] Junior Project Manager: Darien Sandhu MD Cannabinoid(s),Ur Negative Normal NEG [facility] Comment on above: Performed By: #### F EBC #### [address] [address] Junior Project Manager: Darien Sandhu MD Methadone Ql (U) Negative Normal NEG [facility] Comment on above: Performed By: #### F EBC #### [address] [address] Junior Project Manager: Darien Sandhu MD Methamphetamine, Ur Negative Normal NEG [facility] Comment on above: Performed By: #### F EBC #### [address] [address] Junior Project Manager: Darien Sandhu MD Opiate(s), Ur Negative Normal NEG [facility] Comment on above: Performed By: #### F EBC #### [address] [address] Junior Project Manager: Darien Sandhu MD Oxycodone, Urine Negative Normal NEG [facility] Comment on above: Performed By: #### F EBC #### [facility] [address] [place] [address] [phone] Junior Project Manager: Darien Sandhu MD Phencyclidine, Ur Negative Normal NEG [facility] Comment on above: Performed By: #### F EBC #### [facility] [address] [place] [address] [phone] Junior Project Manager: Darien Sandhu MD Propoxyphene,Urine Negative Normal NEG [facility] Comment on above: Performed By: #### F EBC #### [facility] [employer] [address] [place] [address] [phone] Junior Project Manager: Darien Sandhu MD Tricyclic antidepressants Screen Ql (U) Negative Normal NEG [facility] Comment on above: Result Comment: Drug screen results are to be used for medical purposes only. All positive results are unconfirmed. Testing for employment or legal uses should be sent to a reference laboratory for confirmation. Performed By: #### F EBC #### [facility] [employer] [address] [place] [phone] Junior Project Manager: Darien Sandhu MD Interpretive Info NOT REPORTED Normal [facility] Comment on above: Performed By: #### F EBC #### [address] [phone] Junior Project Manager: Darien Sandhu MD MDMA, Urine NOT REPORTED Normal NEG [facility] Comment on above: Performed By: #### F EBC #### [facility] [employer] [address] [place] [address] [phone] Junior Project Manager: Darien Sandhu MD Drug screen multi urineon Amphetamine Screen, Ur Negative NEGATIVE [facility] Barbiturate Screen, Ur Negative NEGATIVE Me [facility] Benzodiazepine Screen, Urine Negative NEGATIV E [facility] Buprenorphine Urine Negative NEGATIVE [facility] Cannabinoid Scrn, Ur Negative NEGATIVE [facility] Cocaine Metabolite, Urine Negative NEGATIVE [facility] MDMA, Urine NOT REPORTED NEGATIVE [facility] [place] Methadone Screen, Urine Negative NEGATIVE M [facility], [place] Methamphetamine, Urine Negative NEGATIVE [facility] Opiates, Urine Negative NEGATIVE [place], [place] Oxycodone Screen, Ur Negative NEGATIVE [place] Phencyclidine, Urine Negative NEGATIVE [facility] Propoxyphene, Urine Negative NEGATIVE [facility] Test Information NOT REPORTED [place] Tricyclic Antidepressants, Urine Negative NEG ATIVE [place] Comment on above: Drug screen results are to be used for medical purposes only. All positive results are unconfirmed. Testing for employment or legal uses should be sent to a reference laboratory for confirmation. EKG 12 Leadon 09-14-2020 Atrial Rate 45 BPM [place] Q-T Interval 468 ms [place], [place] QRS Duration 158 ms [place] QTc Calculation (Bazett) 431 ms [place] R [place] 56 degrees [place], [place] T [place] 48 degrees [place] Ventricular Rate 51 BPM [place] Poor data qualit y, interpretation may be adversely affected Sinus bradycardia with competing junctional rhythm with premature ventricular or aberrantly conducted complexes Non-specific intra-ventricular conduction block Abnormal ECG When compared with ECG of 13-DEC-2010 10:33, Significant change was found Confirmed by Riddhi Purvis MD ([id number]) on 09/14/2020 8:01:17 AM [place], [place] Albert, Mhpn Incoming E kg Results From [facility] [place] - 09/14/2020 8:01 AM EST Poor data quality, interpretation may be adversely affected Sinus bradycardia with competing junctional rhythm with premature ventricular or aberrantly conducted complexes Non-specific intra-ventricular conduction block Abnormal ECG When compared with ECG of 13-DEC-2010 10:33, Significant change was found Confirmed by Riddhi Purvis MD ([id number]) on 09/14/2020 8:01:17 AM [place] Ethanolon 09-14-2020 Ethanol [Mass/Vol] mg/dL <10 mg/dL [place] Ethanol percent <0.010 <0.010 % [place] Ethanol Alcoholon 09-14-2020 Ethanol [Mass/Vol] mg/dL Normal <10 [facility] Comment on above: Performed By: #### A LCB, ACET #### [facility] [address] [place] [address] Junior Project Manager: Macrina Brown MD Ethanol percent <0.010 Normal <0.010 [facility] Comment on above: Performed By: #### A GENA, ACET #### [facility] [address] [place] [address] Junior Project Manager: Macrina Brown MD Iron Binding Cap.on 09-14-20 20 % Fe Saturation 29 % Normal 20-55 [facility] Comment on above: Performed By: #### F EBC #### [address] [address] Junior Project Manager: Darien Sandhu MD Iron [Mass/Vol] 76 ug/dL Normal 37-145 [facility] Comment on above: Performed By: #### F EBC #### [address] [address] Junior Project Manager: Darien Sandhu MD Total Fe Binding Cap 259 ug/dL Normal 250-450 [facility] Comment on above: Performed By: #### F EBC #### [address] [address] Junior Project Manager: Darien Sandhu MD Unbound Fe Bind Cap 183 ug/dL Normal 112-347 [facility] Comment on above: Performed By: #### F EBC #### [address] [phone] Junior Project Manager: Darien Sandhu MD Iron and TIBCon 09-14-2020 Iron [Mass/Vol] 76 ug/dL 37 - 145 ug/dL [place] Iron Saturation 29 % 20 - 55 % [place] TIBC 259 ug/dL 250 - 450 ug/dL [place] UIBC 183 ug/dL 112 - 347 ug/dL [place] Lactic Acidon 09-14-2020 Lactate [Moles/Vol] 1.7 mmol/L Normal 0.5-2.2 [facility] Comment on above: Performed By: #### F EBC #### [facility] [address] [place], [place] [phone] Junior Project Manager: Darien Sandhu MD Lactate [Moles/Vol] NOT REPORTED Normal 0.7-2.1 [facility] Comment on above: Performed By: #### F EBC #### [facility] [employer] [address] [place], [place] [phone] Junior Project Manager: Darien Sandhu MD Lactic Acid, Plasmaon 2019 Lactate [Moles/Vol] 1.7 mmol/L 0.5 - 2.2 mmol/L [place] Lactic Acid, Whole Blood NOT REPORTED 0.7 - 2.1 mmol/L [place] Metabolic Panelon 09-14-2020 GFR/1.73 sq M predicted mickie g non-blacks MDRD (S/P/Bld) [Vol rate/Area] [place], [place] Comment on above: Stage 1: Some kidney damage normal GFR Stage 2: Mild kidney damage GFR 60-89 Stage 3: Moderate kidney damage GFR 30-59 Stage 4: Severe kidney damage GFR 15-29 Stage 5: Severe kidney damage GFR <15 ESRD - chronic treatment by dialysis or transplant Average GFR for 50-5 9 years old: 93 mL/min/1.73sq m Chronic Kidney Disease: <60 mL/min/1.73sq m Kidney failure: <15 mL/min/1.73sq m eGFR calculated using average adult body mass. Additional eGFR calculator available at: http://www.Knowrom.Revstr/multiple_crcl_2012.htm Microscopic Urinalysison Amorphous, UA NOT REPORTED None [place] Bacteria, UA NOT REPORTED None [place] Casts UA NOT REPORTED /LPF [place] Crystals, UA NOT REPORTED None /HPF [facility] Epithelial Cells UA 0 TO 2 [place] Interpretation and review of laboratory results Abnormal [place] Mucus, UA TRACE Abnormal None [place] Other Observations UA NOT REPORTED NOT REQ. M [place], [place] RBC (U) [#/Vol] 0 TO 2 [facility] [place] Renal Epithelial, UA NOT REPORTED 0 /HPF Me [place], [place] Trichomonas, UA NOT REPORTED None [facility] [place] WBC, UA 0 TO 2 [facility] Yeast, UA NOT REPORTED None [place] - [place] Otheron 09-14-2020 SARS-CoV-2 [place] Interpretation and review of laboratory results Abnormal [place] [id number] 09-14-2020 SARS-CoV-2 Normal [facility]spital Comment on above: Performed By: #### C OVID #### [facility] [address] [place] [address] Junior Project Manager: Macrina Brown MD SARS-CoV-2,Rapid Not Detected [facility] Comment on above: Result Comment: Rapid NAAT: The specimen is NEGATIVE for SARS-CoV-2, the novel coronavirus associated with COVID-19. The ID NOW COVID-19 assay is designed to detect the virus that causes COVID-19 in patients with signs and symptoms of infection who are suspected of COVID-19. An individual without symptoms of COVID-19 and who is not shedding SARS-CoV-2 virus would expect to have a negative (not detected) result in this assay. Negative results should be treated as presumptive and, if inconsistent with clinical signs and symptoms or necessary for patient management, should be tested with an alternative molecular assay. Negative results do not preclude SARS-CoV-2 infection and should not be used as the sole basis for patient management decisions. Fact sheet for Healthcare Providers: https://www.fda.gov/media/074808/download Fact sheet for Patients: https://www.fda.gov/media/161517/download Methodology: Isothermal Nucleic Acid Amplification Performed By: #### C OVID #### [facility] [address] [place] [address] Junior Project Manager: Macrina Brown MD SARS-CoV-2 Source .NASOPHARYNGEAL SWAB Normal [facility] Comment on above: Performed By: #### C OVID #### [facility] [address] [place] [address] Junior Project Manager: Macrina Brown MD Salicylateon 09-14-2020 Salicylate <1 Low 3-10 [facility] Comment on above: Performed By: #### F EBC #### [place] [id number] [place], [place] [id number] Junior Project Manager: Darien Sandhu MD Salicylate Lvl <1 Low 3 - 10 mg/dL [place] Troponinon 09-14-2020 Troponin I.cardiac [Mass/Vol] 9 ng/L Normal 0-14 [facility] Comment on above: Result Comment: High Sensitivity Troponin values cannot be compared with other Troponin methodologies. Patients with high levels of Biotin oral intake (i.e >5mg/day) may have falsely decreased Troponin levels. Samples collected within 8 hours of biotin intake may require additional information for diagnosis. Performed By: #### F EBC #### [facility] [address] [place] [address] Junior Project Manager: Darien Sandhu MD Troponin I.cardiac [Mass/Vol] NOT REPORTED Normal <0.0 3 [facility] Comment on above: Performed By: #### F EBC #### [facility] [address] [place] [address] Junior Project Manager: Darien Sandhu MD Troponin I.cardiac [Mass/Vol] NOT REPORTED [place] Troponin T.cardiac [Mass/Vol] NOT REPORTED <0.0 3 ng/mL [place] Troponin, High Sensitivity 9 ng/L 0 - 14 ng /L [place] Comment on above: High Sensitivity Troponin values cannot be compared with other Troponin methodologies. Patients with high levels of Biotin oral intake (i.e >5mg/day) may have falsely decreased Troponin levels. Samples collected within 8 hours of biotin intake may require additional information for diagnosis. UA w/Reflex Cultureon 2019 Acetoacetic Acid,Ur Negative Normal NEG [facility] Comment on above: Performed By: #### F EBC #### [facility] [employer] [address] [place] [id number] Junior Project Manager: Darien Sandhu MD Bilirubin, SemiQt,Ur Negative Normal NEG [facility] Comment on above: Performed By: #### F EBC #### [address] [address] Junior Project Manager: Darien Sandhu MD Color (U) YELLOW Normal YEL [facility] Comment on above: Performed By: #### F EBC #### [address] [address] Junior Project Manager: Darien Sandhu MD Glucose Ql (U) Negative Normal NEG [facility] in Hospital Comment on above: Performed By: #### F EBC #### [facility] [employer] [address] [place] [id number] Junior Project Manager: Darien Sandhu MD Hemoglobin, Ur Negative Normal NEG [facility] in Hospital Comment on above: Performed By: #### F EBC #### [facility] [address] [place] [address] Junior Project Manager: Darien Sandhu MD Leukocyte esterase Test strip Ql (U) Negative Normal NEG [facility] Comment on above: Performed By: #### F EBC #### [facility] [employer] [address] [place] [address] Junior Project Manager: Darien Sandhu MD Nitrite,Ur Negative Normal NEG [facility] Comment on above: Performed By: #### F EBC #### [facility] [employer] [address] [place] [address] Junior Project Manager: Darien Sandhu MD pH (U) 7.5 [pH] Normal 5.0-9.0 [facility] Comment on above: Performed By: #### F EBC #### [facility] [address] [place] [address] Junior Project Manager: Darien Sandhu MD Protein Ql (U) Negative Normal NEG [facility] in Hospital Comment on above: Performed By: #### F EBC #### [facility] [employer] [address] [place] [address] Junior Project Manager: Darien Sandhu MD Specific gravity (U) [Rel density] 1.020 Normal 1 .010-1.020 [facility] Comment on above: Performed By: #### F EBC #### [address] [address] Junior Project Manager: Darien Sandhu MD Turbidity CLEAR Normal CLEAR [facility] Comment on above: Performed By: #### F EBC #### [address] [address] Junior Project Manager: Darien Sandhu MD Urobilinogen,Ur Normal Normal NORM [facility] Comment on above: Performed By: #### F EBC #### [address] [address] Junior Project Manager: Darien Sandhu MD Comment NOT REPORTED Normal [facility] Comment on above: Performed By: #### F EBC #### [facility] [employer] [address] [place] [address] Junior Project Manager: Darien Sandhu MD Urinalysis Reflex to Culture on 09-14-2020 Bilirubin Urine Negative NEGATIVE [facility] [place] Color, UA YELLOW YELLOW [facility] [place] Glucose, Ur Negative NEGATIVE [facility] [place] Ketones Ql (U) Negative NEGATIVE [facility] [place] Leukocyte esterase Test strip Ql (U) Negative NEGATIVE [facility] [place] Nitrite, Urine Negative NEGATIVE [facility], [place] pH, UA 7.5 [facility], [place] Protein (U) [Mass/Vol] Negative NEGATIVE Me [facility], [place] Specific [place], UA 1.020 [facility], [place] Turbidity UA CLEAR CLEAR [place], [place] Urinalysis Comments NOT REPORTED [facility], [place] Urine Hgb Negative NEGATIVE [facility], [place] Urobilinogen, Urine Normal Normal [place], [place] Urinalysis,Microon 0 ----- Normal [facility] Comment on above: Performed By: #### F EBC #### [address] [address] Junior Project Manager: Darien Sandhu MD Epithelial cells LM.HPF (Urine sed) [#/Area] 0 TO 2 No rmal 0-25 [facility] Comment on above: Performed By: #### F EBC #### [address] [address] Junior Project Manager: Darien Sandhu MD Mucus Strands TRACE Abnormal NONE [facility] Comment on above: Performed By: #### F EBC #### [facility] [employer] [address] [place] [address] Junior Project Manager: Darien Sandhu MD RBC (U) [#/Vol] 0 TO 2 Normal 0-2 [facility] Comment on above: Performed By: #### F EBC #### [address] [address] Junior Project Manager: Darien Sandhu MD WBC (U) [#/Vol] 0 TO 2 Normal 0-5 [facility] Comment on above: Performed By: #### F EBC #### [address] [address] Junior Project Manager: Darien Sandhu MD Amorphous sediment LM Ql (Urine sed) NOT REPORTED Normal [facility] Comment on above: Performed By: #### F EBC #### [facility] [address] [place] [address] Junior Project Manager: Darien Sandhu MD Bacteria LM.HPF (Urine sed) [#/Area] NOT REPORTED Normal NONE [facility] Comment on above: Performed By: #### F EBC #### [facility] [address] [place] [address] Junior Project Manager: Darien Sandhu MD Casts LM.LPF (Urine sed) [#/Area] NOT REPORTED Normal [facility] Comment on above: Performed By: #### F EBC #### [facility] [address] [place] [address] Junior Project Manager: Darien Sandhu MD Crystals LM Nom (Urine sed) NOT REPORTED Normal NONE [facility] Comment on above: Performed By: #### F EBC #### [address] [address] Junior Project Manager: Darien Sandhu MD Epithelial, Renal NOT REPORTED Normal 0 [facility] Comment on above: Performed By: #### F EBC #### [facility] [address] [place] [address] Junior Project Manager: Darien Sandhu MD Other Observations NOT REPORTED Normal NREQ [facility] Comment on above: Performed By: #### F EBC #### [facility] [employer] [address] [place] [address] Junior Project Manager: Darien Sandhu MD Trichomonas NOT REPORTED Normal NONE [facility] Comment on above: Performed By: #### F EBC #### [facility] [employer] [address] [place] [address] Junior Project Manager: Darien Sandhu MD Yeast LM Ql (Urine sed) NOT REPORTED Normal NONE [facility] Comment on above: Performed By: #### F EBC #### [facility] [address] [place] [address] Junior Project Manager: Darien Sandhu MD Venous Blood Gaseson 020 Body Temp. 37.0 Normal [facility] Comment on above: Performed By: #### B C #### [facility] [address] [place] [address] Junior Project Manager: Macrina Brown MD HCO3 (Bld) [Moles/Vol] 26.7 mmol/L Normal 24.0-30.0 [facility] Comment on above: Performed By: #### B C #### [facility] [address] [place] [address] Junior Project Manager: Macrina Brown MD Oxygen (Bld) [Partial pressure] 29.6 mm[Hg] Low 30. 0-50.0 [facility] Comment on above: Performed By: #### B C #### [address] [place], [place] [phone] Junior Project Manager: Macrina Brown MD Oxygen saturation in Blood 55.2 % Low 60.0-85.0 [facility] Comment on above: Performed By: #### B C #### [facility] [address] [place], [place] [phone] Junior Project Manager: Macrina Brown MD pCO2 45.3 Normal 39-55 [facility] Comment on above: Performed By: #### B C #### [facility] [address] [place], [place] [phone] Junior Project Manager: Macrina Brown MD pH (Bld) 7.388 [pH] Normal 7.32-7.42 [facility] Comment on above: Performed By: #### B C #### [facility] [address] [place] [address] Junior Project Manager: Macrina Brown MD Positive Base Excess 1.2 mmol/L Normal 0.0-2.0 [facility] Comment on above: Performed By: #### B C #### [facility] [address] [place], [place] [phone] Junior Project Manager: Macrina Brown MD Edilberto Test NOT REPORTED Normal [facility] Comment on above: Performed By: #### B C #### [facility] [address] [place], [place] [phone] Junior Project Manager: Macrina Brown MD Carboxy Hgb NOT REPORTED Normal 0-5 [facility] Comment on above: Performed By: #### B C #### [facility] [address] [place], [place] [phone] Junior Project Manager: Macrina Brown MD FIO2 NOT REPORTED Normal [facility] Comment on above: Performed By: #### B C #### [facility] [address] [place], [place] [phone] Junior Project Manager: Macrina Brown MD Methemoglobin NOT REPORTED Normal 0.0-1.9 [facility] Comment on above: Performed By: #### B C #### [facility] [address] [place], [place] [phone] Junior Project Manager: Macrina Brown MD Mode NOT REPORTED Normal [facility] Comment on above: Performed By: #### B C #### [facility] [address] [place], [place] [phone] Junior Project Manager: Macrina Brown MD Negative Base Excess NOT REPORTED Normal 0.0-2.0 [facility] Comment on above: Performed By: #### B C #### [facility] [address] [place], [place] [phone] Junior Project Manager: Macrina Brown MD Notification Time NOT REPORTED Normal [facility] Comment on above: Performed By: #### B C #### [facility] [address] [place], [place] [phone] Junior Project Manager: Macrina Brown MD Notification: NOT REPORTED Normal [facility] Comment on above: Performed By: #### B C #### [facility] [address] [place], [place] [phone] Junior Project Manager: Macrina Brown MD O2 Device/Flow/% NOT REPORTED Normal [facility] Comment on above: Performed By: #### B C #### [facility] [address] [place], [place] [phone] Junior Project Manager: Macrina Brown MD Oxyhemoglobin NOT REPORTED Normal 95.0-98.0 [facility] Comment on above: Performed By: #### B C #### [facility] [address] [place], [place] [phone] Junior Project Manager: Macrina Brown MD Pco2 Adj'd for Temp. NOT REPORTED Normal 39.0-55.0 [facility] Comment on above: Performed By: #### B C #### [facility] [address] [place] [address] Junior Project Manager: Macrina Brown MD PEEP/CPAP NOT REPORTED Normal [facility] Comment on above: Performed By: #### B C #### [facility] [address] [place] [address] Junior Project Manager: Macrina Brown MD pH Adjst'd for Temp. NOT REPORTED Normal 7.320-7.420 [facility] Comment on above: Performed By: #### B C #### [facility] [address] [place], [place] [phone] Junior Project Manager: Macrina Brown MD pO2 Adj'd for Temp. NOT REPORTED Normal 30.0-50.0 [facility] Comment on above: Performed By: #### B C #### [facility] [address] [place], [place] [phone] Junior Project Manager: Macrina Brown MD PSV NOT REPORTED Normal [facility] Comment on above: Performed By: #### B C #### [facility] [address] [place] [address] Junior Project Manager: Macrina Brown MD Pt. Position NOT REPORTED Normal [facility] Comment on above: Performed By: #### B C #### [facility] [address] [place] [address] Junior Project Manager: Macrina Brown MD Set Rate NOT REPORTED Normal [facility] Comment on above: Performed By: #### B C #### [facility] [address] [place], [place] [phone] Junior Project Manager: Macrina Brown MD Site Drawn NOT REPORTED Normal [facility] Comment on above: Performed By: #### B C #### [facility] [address] [place] [address] Junior Project Manager: Macrina Brown MD Text for Respiratory NOT REPORTED Normal [facility] Comment on above: Performed By: #### B C #### [facility] [address] [place] [address] Junior Project Manager: Macrina Brown MD Total Hb NOT REPORTED Normal 12.0-16.0 [facility] Comment on above: Performed By: #### B C #### [facility] [address] [place] [address] [address] [place], [place] [phone] Junior Project Manager: Macrina Brown MD Total Rate NOT REPORTED Normal [facility] Comment on above: Performed By: #### B C #### [facility] [address] [place] [address] Junior Project Manager: Macrina Brown MD [place] NOT REPORTED Normal [facility] Comment on above: Performed By: #### B C #### [facility] [address] [place] [address] Junior Project Manager: Macrina Brown MD Vitamin B12 & folateon 09-14 Cobalamin (Vitamin B12) [Mass/Vol] 599 pg/mL 2 32 - 1245 pg/mL [place] Folate 6.4 ng/mL >4.8 [place] XR CHEST PORTABLEon 09-14-20 20 XR CHEST PORTABLE EXAMINATION: ONE XRAY VIEW OF THE CHEST 09/14/2020 12:44 am COMPARISON: None. HISTORY: ORDERING SYSTEM PROVIDED HISTORY: altered mental status TECHNOLOGIST PROVIDED HISTORY: altered mental status FINDINGS: Cardiomediastinal silhouette is normal in size. No pulmonary consolidation, pleural effusion, or pneumothorax. Lungs are hyperinflated. No acute osseous abnormality. IMPRESSION: 1. No acute cardiopulmonary abnormality. 2. Hyperinflated lungs, suggestive of COPD. Interpreted by: Janee Smith MD Signed by: Janee Smith MD 09/14/20 Final result Normal [facility] l 1. No acute cardiopu lmonary abnormality. 2. Hyperinflated lungs, suggestive of COPD. [place], [place], [facility] Incoming R adiant Results From [employer] - 09/14/2020 12:53 AM EST EXAMINATION: ONE XRAY VIEW OF THE CHEST 09/14/2020 12:44 am COMPARISON: None. HISTORY: ORDERING SYSTEM PROVIDED HISTORY: altered mental status TECHNOLOGIST PROVIDED HISTORY: altered mental status FINDINGS: Cardiomediastinal silhouette is normal in size. No pulmonary consolidation, pleural effusion, or pneumothorax. Lungs are hyperinflated. No acute osseous abnormality. IMPRESSION: 1. No acute cardiopulmonary abnormality. 2. Hyperinflated lungs, suggestive of COPD. [place] EXAMINATION: ONE XRA Y VIEW OF THE CHEST 09/14/2020 12:44 am COMPARISON: None. HISTORY: ORDERING SYSTEM PROVIDED HISTORY: altered mental status TECHNOLOGIST PROVIDED HISTORY: altered mental status FINDINGS: Cardiomediastinal silhouette is normal in size. No pulmonary consolidation, pleural effusion, or pneumothorax. Lungs are hyperinflated. No acute osseous abnormality. [place], [place] Vital Signs Date Time Vital Sign Value Performing Clinician Meghna william 09-15-2020 10:45-0500 BP Diastolic 78 mm[Hg] [place] 09-15-2020 10:45-0500 BP Systolic 92 mm[Hg] [place] 09-15-2020 09:45-0500 Body Temperature 97.59 [degF] Matheus Patton [place], [place] 09-15-2020 09:45-0500 Pulse (Heart Rate) 73 /min Mathues Patton [place], [place] 09-15-2020 09:45-0500 Pulse Oximetry 95 % [place] 09-15-2020 09:45-0500 Respiratory Rate 16 /min [place], [place] 09-15-2020 08:15-0500 Height 162.6 cm [place], [place] 09-14-2020 06:25-0500 Respiratory rate NOT REPORTED [facility] Comment on above: Performed By: #### B C #### [facility] [address] [place] [address] Junior Project Manager: Macrina Brown MD 09-14-2020 05:50-0500 BMI (Body Mass Index) 17.66 kg/m2 [facility] [place] 09-14-2020 05:50-0500 Body weight 46.67 kg [place], [place] 09-14-2020 04:33-0500 Respiratory rate NOT REPORTED [place] Encounters Encounter Date Encounter Type Care Provider Facility Start: 05-05-2022 End: 05-05-[address] MOLLY GANDHI Facility:[facility] Start: 04-04-2022 End: 04-04-2022 ambulatory Max Horan Other [facility] [employer] Other Start: 04-04-2022 Office outpatient ne w [address] [facility] Start: 02-15-2022 End: 02-16-[address] HOOD HSIEH Facility:[facility] Start: 09-29-2020 End: 09-30-2020 Patient encounter procedure [facility] Start: 09-29-2020 End: 09-29-2020 Subsequent hospital visit by physician [facility] Start: 09-22-2020 End: 09-23-2020 Patient encounter procedure [facility] Start: 09-22-2020 End: 09-22-2020 Subsequent hospital visit by physician [facility] Start: 09-20-2020 End: 09-21-2020 Patient encounter procedure RUGEN M MARIO [facility] Start: 09-20-2020 End: 09-20-2020 Subsequent hospital visit by physician [facility] Start: 09-14-2020 End: 09-15-2020 Evaluation and management of inpatient CHELSI PARRA [facility] Start: 09-13-2020 End: 09-15-2020 Evaluation and management of inpatient Matheus Patton Work Phone: [facility] Comment on above: Altered mental statu s, unspecified altered mental status type (Primary Dx) Procedures Date Procedure Procedure Detail Performing Clinician Start: 09-29-2020 Lipid panel Daisy gamez Work Phone: Start: 09-22-2020 Lipid panel Daisy gamez Work Phone: Start: 09-20-2020 Culture bacterial quanttative colony count urine RUGEN MARIO Start: 09-20-2020 Urinalysis microscopic only RUGEN MARIO Start: 09-20-2020 Urnls dip stick/tabl et rgnt auto w/o microscopy RUGEN MARIO Start: 09-20-2020 Urinalysis microscopic only Rugen M Hector Work Phone: Start: 09-20-2020 Urnls dip stick/tabl et rgnt auto w/o microscopy Rugen M Hector Work Phone: Start: 09-15-2020 DISCHARGE PATIENT RUGEN MARIO Start: 09-15-2020 INCENTIVE SPIROMETRY RT RUGEN MARIO Start: 09-15-2020 DIETARY NUTRITION SUPPLEMENTS RUGEN MARIO Start: 09-15-2020 INCENTIVE SPIROMETRY RT RUGEN MARIO Start: 09-15-2020 INITIATE OXYGEN THER APY PROTOCOL RUGEN MARIO Start: 09-15-2020 INCENTIVE SPIROMETRY RT RUGEN MARIO Start: 09-15-2020 DAILY WEIGHTS RUGEN ALD A Start: 09-15-2020 INCENTIVE SPIROMETRY RT RUGEN MARIO Start: 09-14-2020 INCENTIVE SPIROMETRY RT RUGEN MARIO Start: 09-14-2020 Blood count complete auto&auto difrntl wbc RUGEN MARIO Start: 09-14-2020 Blood count complete automated RUGEN MARIO Start: 09-14-2020 INCENTIVE SPIROMETRY RT RUGEN MARIO Start: 09-14-2020 INCENTIVE SPIROMETRY RT RUGEN MARIO Start: 09-14-2020 INCENTIVE SPIROMETRY RT RUGEN MARIO Start: 09-14-2020 INCENTIVE SPIROMETRY RT RUGEN MARIO Start: 09-14-2020 IP CONSULT TO CASE MANAGEMENT RUGEN MARIO Start: 09-14-2020 REASON FOR NO MECHAN ICAL VTE PROPHYLAXIS RUGEN MARIO Start: 09-14-2020 TELEMETRY MONITORING RU GEN MARIO Start: 09-14-2020 DIET GENERAL RUGEN MARIO Start: 09-14-2020 Ecg routine ecg w/le ast 12 lds w/i&r RUGEN MARIO Start: 09-14-2020 FULL CODE RUGEN MARIO Start: 09-14-2020 INCENTIVE SPIROMETRY RT RUGEN MARIO Start: 09-14-2020 INITIATE OXYGEN THER APY PROTOCOL RUGEN MARIO Start: 09-14-2020 NOTIFY PHYSICIAN (SPECIFY) RUGEN MARIO Start: 09-14-2020 VITAL SIGNS RUGEN MARIO Start: 09-14-2020 PATIENT STATUS (DIRECT) RUGEN MARIO Start: 09-14-2020 CULTURE, BLOOD 1 RUGEN MARIO Start: 09-14-2020 OT EVAL AND TREAT RUGEN MARIO Start: 09-14-2020 PT EVAL AND TREAT RUGEN MARIO Start: 09-14-2020 COVID-19 RUGEN MARIO Start: 09-14-2020 End: 09-14-2020 CULTURE, BLOOD 1 Chelsi Parra Work Phone: Start: 09-14-2020 ELEVATE HEELS OFF OF BED RUGEN MARIO Start: 09-14-2020 HEAD OF BED 60 DEGRE ES OR LESS RUGEN MARIO Start: 09-14-2020 NURSING COMMUNICATION R UGEN MARIO Start: 09-14-2020 TURN PATIENT RUGEN MARIO Start: 09-14-2020 COVID-19 Chelsi Parra Work Phone: Start: 09-14-2020 Culture bacterial quanttative colony count urine RUGEN MARIO Start: 09-14-2020 Drug screen class list a RUGEN MARIO Start: 09-14-2020 Urinalysis microscopic only RUGEN MARIO Start: 09-14-2020 Urnls dip stick/tabl et rgnt auto w/o microscopy RUGEN MARIO Start: 09-14-2020 Blood gases any comb ination ph pco2 po2 co2 hco3 RUGEN MARIO Start: 09-14-2020 Ct head/brain w/o co ntrast material RUGEN MARIO Start: 09-14-2020 Drug screen class list a Matheus Patton Work Phone: Start: 09-14-2020 Urinalysis microscopic only Matheus Patton Work Phone: Start: 09-14-2020 Urnls dip stick/tabl et rgnt auto w/o microscopy Matheus Patton Work Phone: Start: 09-14-2020 Blood gases any comb ination ph pco2 po2 co2 hco3 Matheus Patton Work Phone: Start: 09-14-2020 Ct head/brain w/o co ntrast material Matheus Patton Work Phone: Start: 09-14-2020 Ecg routine ecg w/le ast 12 lds w/i&r RUGEN MARIO Start: 09-14-2020 EKG REPORT RUGEN MARIO Start: 09-14-2020 Radiologic exam ches t single view RUGEN MARIO Start: 09-14-2020 STRAIGHT CATH RUGEN ALD A Start: 09-14-2020 Gluc bld gluc mntr d ev cleared fda spec home use RUGEN MARIO Start: 09-14-2020 INSERT PERIPHERAL IV RU GEN MARIO Start: 09-14-2020 Assay of acetaminophen RUGEN MARIO Start: 09-14-2020 Assay of ammonia RUGEN MARIO Start: 09-14-2020 Assay of ethanol RUGEN MARIO Start: 09-14-2020 Assay of lactate RUGEN MARIO Start: 09-14-2020 Assay of salicylate RUG EN MARIO Start: 09-14-2020 Assay of troponin quantitative RUGEN MARIO Start: 09-14-2020 Blood count complete auto&auto difrntl wbc RUGEN MARIO Start: 09-14-2020 Comprehensive metabo lic panel RUGEN MARIO Start: 09-14-2020 Cyanocobalamin vitamin b-12 RUGEN MARIO Start: 09-14-2020 Iron binding capacity R UGEN MARIO Start: 09-14-2020 Ecg routine ecg w/le ast 12 lds i&r only Matheus Patton Work Phone: Start: 09-14-2020 EKG REPORT Hpf Scanni ng Start: 09-14-2020 Radiologic exam ches t single view Matheus Patton Work Phone: Start: 09-14-2020 Assay of acetaminophen Matheus Patton Work Phone: Start: 09-14-2020 Assay of ammonia Katarina Patton Work Phone: Start: 09-14-2020 Assay of ethanol Katarina Patton Work Phone: Start: 09-14-2020 Assay of lactate Katarina Patton Work Phone: Start: 09-14-2020 Assay of salicylate Abraham kayleen Patton Work Phone: Start: 09-14-2020 Assay of troponin quantitative Matheus Patton Work Phone: Start: 09-14-2020 Blood count complete auto&auto difrntl wbc Matheus Patton Work Phone: Start: 09-14-2020 Comprehensive metabo lic panel Matheus Patton Work Phone: Start: 09-14-2020 Iron binding capacity D ipakkumar P Parra Work Phone: Start: 09-14-2020 VITAMIN B12 & FOLATE Di pakkumar P Parra Work Phone: Plan of Treatment Date Care Activity Detail Author Start: 09-22-2025 Lipid panel Lipid screen [place], [place] Start: 05-25-2020 Influenza vaccination Flu vaccine (# 1) [place], [place] Start: 10-04-2018 Screening for malign ant neoplasm of breast Breast cancer screen [place], [place] Start: 01-22-2012 Screening for malign ant neoplasm of colon Colon cancer screen colonoscopy [place] Start: 01-22-2012 Shingles Vaccine (1 of 2) Shingles Vaccine (1 of 2) [place] Start: 2002 Lipid panel Lipid screen [place], [place] Start: 1983 Screening for malign ant neoplasm of cervix Cervical cancer screen [place] Start: 1981 DTaP/Tdap/Td vaccine (1 - Tdap) DTaP/Tdap/Td vaccine (1 - Tdap) [place] Start: 1977 HIV screening HIV screen [facility] [place], [place] Start: 1962 Hepatitis C screening Hepatitis C sc reen [place] End: 09-17-2020 CBC CBC Lab Routine Daily for 3 Occurrences starting 09/15/2020 until 09/17/2020 [place] Comment on above: Daily for 3 Occurren makeda starting 09/15/2020 until 09/17/2020 End: 09-17-2020 Comprehensive Metabolic Panel w/ Reflex to MG Comprehensive Metabolic Panel w/ Reflex to MG Lab Routine Daily for 3 Occurrences starting 09/15/2020 until 09/17/2020 [place] Comment on above: Daily for 3 Occurren makeda starting 09/15/2020 until 09/17/2020 Culture, Blood 1 [place] End: 09-20-2020 Culture, Urine Culture, Urine Microbiology Routine Once for 1 Occurrences starting 09/20/2020 until 09/20/2020 [place] Comment on above: Once for 1 Occurrenc es starting 09/20/2020 until 09/20/2020 Culture, Urine [place] End: 09-14-2020 Culture, Urine Culture, Urine Microbiology Routine One Time for 1 Occurrences starting 09/14/2020 until 09/14/2020 [place] Comment on above: One Time for 1 Occur rences starting 09/14/2020 until 09/14/2020 Oxygen therapy [[facility] Data Set] Initiate Oxygen Therapy Protocol Respiratory Care Routine Daily until discontinued starting 09/14/2020 [place] Comment on above: Daily until disconti nued starting 09/14/2020 End: 09-14-2020 POCT glucose POCT glucose Point of Care Testing Routine One Time for 1 Occurrences starting 09/14/2020 until 09/14/2020 [place] Comment on above: One Time for 1 Occur rences starting 09/14/2020 until 09/14/2020 Spirometry panel Incentive scarlet metry Respiratory Care Routine Every 2hr while awake until discontinued starting 09/14/2020 [place] Comment on above: Every 2hr while awak e until discontinued starting 09/14/2020 Payers Date Payer Category Payer Unknown [id number] 1960 Unknown [id number] 1960 Unknown [id number] 1960 Unknown [id number] 1960 Unknown [id number] 1959 Unknown [id number] 2.1 [id number] Social History Date Type Detail Facility Start: 09-14-2020 Tobacco smoking status NHIS Never smoker [place] Start: 09-14-2020 Tobacco use and exposure Never used [place] Start: 09-14-2020 Alcohol intake Current non-dr sonido of alcohol (finding) [place] Start: 03-25-2014 Alcohol Comment Rarely years ago [place], [place] Sex Assigned At Not on file [place], [place] Sex Assigned At Sex Assigned At [facility] hhgregg Other Evaluation note 04-04-2022 Note Date & Type Note Facility 04-04-2022 Evaluation note Encounter Date Diagnosis Assessment Notes Mar, Cervical stenosis of spine (ICD-10 - M48.02) I have independently reviewed the MRI of the cervical spine. And the consult from Dr. Hsieh. This patient has spondylosis of the cervical spine with some narrowing. No cord signal change no severe canal stenosis. Her gait and physical problems at this point are secondary to Parkinson's disease; the hyperreflexia is not due to cervical stenosis. Surgical intervention on her neck will change nothing with regard to her present physical status. Mar, Parkinson's disease (tremor, stiffness, slow motion, unstable posture) (ICD-10 - G20) Mar, Primary osteoarthrit is, right shoulder (ICD-10 - M19.011) Mar, Primary osteoarthrit is, left shoulder (ICD-10 - M19.012) hhgregg Other History general Narrative - Reported Note Date & Type Note Facility History general Narrative - Reported Type Medical History anemia Medical History anxiety Medical History dementia Medical History chronic depression Medical History asthma Medical History fibromyalgia Medical History anorexia nervosa hhgregg Other Advance Directives No Advanced Directives Records FoundDocuments on File Type Date Recorded Patient Welder Gun Expl anation ACP-Advance Directive ACP-Power of Nail Technician Teacher Latest Code Status on File Code Status Date Activated Date Inactivated Comments Full Code 09/14/2020 9:13 AM 09/15/2020 1:32 PM Full Code 04/08/2014 9:16 AM 04/08/2014 2:24 PM Latest Code Status on File Code Status Date Activated Date Inactivated Comments Full Code 09/14/2020 9:13 AM Summary Purpose Family History No Family History Records FoundNo Family History Records Found Discharge Instructions * Discharge Instr - Activity* Jahaira Gore RN - 09/15/2020 10:27 AM EST As tolerated * Discharge Instr - Diet* Jahaira Gore RN - 09/15/2020 10:27 AM EST ? Good nutrition is important when healing from an illness, injury, or surgery. Follow any nutrition recommendations given to you during your hospital stay. ? If you were given an oral nutrition supplement while in the hospital, continue to take this supplement at home. You can take it with meals, in-between meals, and/or before bedtime. These supplements can be purchased at most local grocery stores, pharmacies, and HTP-stores. ? If you have any questions about your diet or nutrition, call the hospital and ask for the dietitian. General diet * Discharge Instr - COLLEEN* Jahaira Gore RN - 09/15/2020 10:05 AM EST Continuity of Care Form Patient Name: Zev Caldwell : 1960 Admit date: 09/13/2020 Discharge date: 09/15/2020 Code Status Order: Full Code Advance Directives: Advance Care Flowsheet Documentation Date/Time Healthcare Directive Type of Healthcare Directive Copy in Chart Healthcare Agent Appointed Healthcare Agent's Name Healthcare Agent's Phone Number 09/14/20 [phone] No, patient does not have an advance directive for healthcare treatment -- -- -- -- -- Admitting Physician: Chelsi Parra MD PCP: No primary care provider on file. Discharging Nurse: Tien Gore RN Discharging Hospital Unit/Room#: 0317/0317-01 Discharging Unit Emergency Contact: Extended Emergency Contact Information Primary Emergency Contact: Mimi Caldwell Address: Relation: Child Secondary Emergency Contact: Juanis Caldwell Relation: Child Secondary Special Education Teacher needed? No Past Surgical History: Past Surgical History: Procedure Laterality Date CYST REMOVAL scalp TUBAL LIGATION Immunization History: There is no immunization history on file for this patient. Active Problems: Patient Active Problem List Diagnosis Code Low back pain M54.5 Post-menopausal Z78.0 Depression F32.9 Abnormal mammogram R92.8 Abnormal vaginal bleeding N93.9 Dyspnea R06.00 Radiculopathy M54.10 Altered mental status, unspecified R41.82 Fibromyalgia M79.7 Normocytic anemia D64.9 Severe malnutrition (HCC) E43 Isolation/Infection: Isolation No Isolation Patient Infection Status None to display Nurse Assessment: Last Vital Signs: BP (!) 144/86 Pulse 64 Temp 98.3 F (36.8 C) (Oral) Resp 15 Ht 5' 4 (1.626 m) Wt 102 lb 14.4 oz (46.7 kg) SpO2 97% BMI 17.66 kg/m Last documented pain score (0-10 scale): Last Weight: Wt Readings from Last 1 Encounters: 09/14/20 102 lb 14.4 oz (46.7 kg) Mental Status: disoriented and alert IV Access: - None Nursing Mobility/ADLs: Walking Independent Transfer Independent Bathing Assisted Dressing Independent Toileting Assisted Feeding Assisted Plant Propagator Assisted Med Delivery whole Wound Care Documentation and Therapy: Elimination: Continence: Bowel: yes Bladder: Yes Urinary Catheter: None Colostomy/Ileostomy/Ileal Conduit: No Date of Last BM: Unknown Intake/Output Summary (Last 24 hours) at 09/15/2020 1002 Last data filed at 09/14/2020 1445 Gross per 24 hour Intake 531.02 ml Output Net 531.02 ml I/O last 3 completed shifts: In: 531 [P.O.:200; I.V.:331] Out: - Safety Concerns: Sundowners Sundrome and At Risk for Falls Impairments/Disabilities: None Nutrition Therapy: Current Nutrition Therapy: - Oral Diet: General Routes of Feeding: Oral Liquids: Thin Liquids Daily Fluid Restriction: no Last Modified Barium Swallow with Video (Video Swallowing Test): not done Treatments at the Time of Hospital Discharge: Respiratory Treatments: Oxygen Therapy: is not on home oxygen therapy. Ventilator: - No ventilator support Rehab Therapies: Physical Therapy and Occupational Therapy Weight Bearing Status/Restrictions: No weight bearing restirctions Other Medical Equipment (for information only, NOT a DME order): Other Treatments: Patient's personal belongings (please select all that are sent with patient): None RN SIGNATURE: Tien Gore RNTANK TRUCK LOADER/SOCIAL WORK SECTION Inpatient Status Date: 09/14/2020 Readmission Risk Assessment Score: Readmission Risk Risk of Unplanned Readmission: 13 Discharging to Facility/ Agency Name: [facility] Address: [address] [place] [address] Fax:[phone] Dialysis Facility (if applicable) Name: Address: Dialysis Schedule: Phone: Fax: Asian Studies Program Chair/Brim Setter signature: at10:05 AM EST PHYSICIAN SECTION Prognosis: {Prognosis:4389772180} Condition at Discharge: { Patient Condition:263369802} Rehab Potential (if transferring to Rehab): {Prognosis:1704174243} Recommended Labs or Other Treatments After Discharge: Physician Certification: I certify the above information and transfer of Zev Caldwell is necessaryfor the continuing treatment of the diagnosis listed and that she requires inpatient [facility] hospitalfor less [facility]. Update Admission H&P: {CHP DME Changes in HandP:380657183} PHYSICIAN SIGNATURE: {Esignature:121073776} * Additional Instructions* Jahaira Gore RN - 09/15/2020 Patient Instructions: Activity: activity as tolerated Diet: regular diet and encourage fluids Wound Care: none needed Other: None Disposition: DC to [facility] inpatient psych care Follow up: Patient will be followed by No primary care provider on file. in 1-2 weeks documented in this encounter History of Present Illness * Jahaira Gore RN - 09/15/2020 11:31 AM EST Patient to ER entrance with ambulance, with all personal belongings for discharge to [facility] [place] at this time. * Jahaira Gore RN - 09/15/2020 10:[address] Parra at bedside and is requesting a blood pressure be obtained. Manual blood pressure taken andwas found to be 92/78. No new orders received from Dr. Parra at present time. * Jahaira Gore RN - 09/15/2020 9:45 AM EST Morning vitals and assessment obtained at this time. Pt is calm and cooperative for most of the morning assessment. Pt is agreeable to everything but b/p. B/P was attempted but patient became agitated when cuff inflated and became tight on her arm. B/P will be obtained at a later time. Pt denies any further needs. * Darling Lombardi LSW - 09/15/2020 9:41 AM EST Patient is approved to go to [facility] today. Made the family aware of the discharge. Patient will goby ambulance. Notified [facility] of the change in the discharge plan. ERIN Le * Jahaira Gore RN - 09/15/2020 9:40 AM EST PT in room to assess patient. Will attempt morning assessment and vitals when they are finished. * Jahaira Gore RN - 09/15/2020 9:30 AM EST OT in room to assess patient. Will assess and take morning vitals when they are finished. * Pranav Cifuentes RD, LD - 09/15/2020 8:14 AM EST Comprehensive Nutrition Assessment Type and Reason for Visit: Initial Nutrition Recommendations/Plan: Encourage PO as able Nutrition Assessment: Severe malnutrition r/t inadequate nutrient intakes, AEB moderate fat and muscle losses and underweight status. Suspected low PO intakes, although unable to confirm. History or weighing >200# in 2013, without known velocity of losses between then and now. Will add a supplement, but I am not very confident that it will be received well. Malnutrition Assessment: Malnutrition Status: Severe malnutrition Context: Chronic Illness Findings of the 6 clinical characteristics of malnutrition: Energy Intake: Unable to assess Weight Loss: Unable to assess Body Fat Loss: 1 - Mild body fat loss(moderate) Orbital, Fat Overlying Ribs, Buccal region Muscle Mass Loss: 1 - Mild muscle mass loss(moderate) Temples (temporalis), Scapula (trapezius), Clavicles (pectoralis & deltoids) Fluid Accumulation: Unable to assess Pet Adoption Counselor Strength: Not Performed Estimated Daily Nutrient Needs: Energy (kcal): 5954-6468(35-40); Weight Used for Energy Requirements: Current Protein (g): 84-93(1.8-2.0); Weight Used for Protein Requirements: Current Fluid (ml/day): 1900; Method Used for Fluid Requirements: 1 ml/kcal Nutrition Related Findings: wasted/cachectic in appearance Wounds: None Current Nutrition Therapies: DIET GENERAL; Anthropometric Measures: Height: 5' 4 (162.6 cm) Current Body Weight: 102 lb 14.4 oz (46.7 kg) Admission Body Weight: 102 lb 14.4 oz (46.7 kg) Usual Body Weight: [place] Body Weight: 120 lbs; % [place] Body Weight 85.8 % BMI: 17.7 Adjusted Body Weight: ; No Adjustment BMI Categories: Underweight (BMI less than 18.5) Nutrition Diagnosis: Severe malnutrition related to cognitive or neurological impairment, inadequate protein-energy intake as evidenced by moderate loss of subcutaneous fat, moderate muscle loss, weight loss Lab Results Component Value Date NA 136 09/14/2020 K 3.9 09/14/2020 CL 100 09/14/2020 CO2 26 09/14/2020 BUN 21 (H) 09/14/2020 CREATININE 0.68 09/14/2020 GLUCOSE 101 (H) 09/14/2020 CALCIUM 9.7 09/14/2020 PROT 7.1 09/14/2020 LABALBU 3.8 09/14/2020 BILITOT 0.60 09/14/2020 ALKPHOS 53 09/14/2020 AST 17 09/14/2020 ALT 7 09/14/2020 LABGLOM >60 09/14/2020 GFRAA >60 09/14/2020 No results found for: VITD25 Nutrition Interventions: Food and/or Nutrient Delivery: Continue Current Diet, Start Oral Nutrition Supplement Nutrition Education/Counseling: Education not appropriate Coordination of Nutrition Care: Continue to monitor while inpatient Goals: PO >75% meals and supplements Nutrition Monitoring and Evaluation: Behavioral-Environmental Outcomes: Other (Comment)(mental status) Food/Nutrient Intake Outcomes: Food and Nutrient Intake, Supplement Intake Physical Signs/Symptoms Outcomes: Biochemical Data, Weight Discharge Planning: Continue current diet, Continue Oral Nutrition Supplement Contact: [phone] * Jahaira Gore RN - 09/15/2020 8:00 AM EST Patient continues to rest quietly with unlabored respirations. Will attempt morning assessment whenpatient awakens. * Chelsi Parra MD - 09/15/2020 7:56 AM EST Progress Note Chelsi Parra MD OBJECTIVE: Patient seen for f/u of Altered mental status, unspecified. She is violent,non compliant,refusing all treatments. cultures neg so far ROS: Constitutional: negative for fevers, and negative for chills. Respiratory: negative for shortness of breath, negative for cough, and negative for wheezing Cardiovascular: negative for chest pain, and negative for palpitations Gastrointestinal: negative for abdominal pain, negative for nausea,negative for vomiting, negative for diarrhea, and negative for constipation All other systems were reviewed with the patient and are negative unless otherwise stated in HPI OBJECTIVE: Vitals: Temp: 98.3 F (36.8 C) BP: (!) 144/86 Resp: 15 Pulse: 64 SpO2: 97 % 24HR INTAKE/OUTPUT: Intake/Output Summary (Last 24 hours) at 09/15/2020 0756 Last data filed at 09/14/2020 1445 Gross per 24 hour Intake 531.02 ml Output Net 531.02 ml Exam: GEN: Awake, not cooperativeEYES: EOMI, pupils equal NECK: Supple. No lymphadenopathy. No carotid bruit CVS: regular rate and rhythm, no audible murmur PULM: CTA, no wheezes, rales or rhonchi, no acute respiratory distress ABD: Bowels sounds normal. Abdomen is soft. No distention. no tenderness to palpation. EXT: no edema bilaterally . No calf tenderness. NEURO: Moves all extremities. Motor and sensory are grossly intact SKIN: No rashes. No skin lesions. Diagnostic Data: All available data reviewed Lab Results Component Value Date WBC 5.5 09/14/2020 HGB 10.9 (L) 09/14/2020 MCV 87.8 09/14/2020 PLT 242 09/14/2020 Lab Results Component Value Date GLUCOSE 101 (H) 09/14/2020 BUN 21 (H) 09/14/2020 CREATININE 0.68 09/14/2020 NA 136 09/14/2020 K 3.9 09/14/2020 CALCIUM 9.7 09/14/2020 CL 100 09/14/2020 CO2 26 09/14/2020 PROBLEM LIST: Principal Problem: Altered mental status, unspecified Active Problems: Fibromyalgia Normocytic anemia Resolved Problems: * No resolved hospital problems. * ASSESSMENT / PLAN: Altered mental status, unspecified No specific medical treatable cause found Psych referal made Nutrition status: at risk for malnutrition DVT prophylaxis: Lovenox High risk medications: none Disposition: Discharge plan is Swapna Parra M.D. 09/15/2020 7:56 AM * Darling Lombardi LSW - 09/15/2020 7:38 AM EST Referral made to [facility] for inpatient psych care. Patient will need to be pink slip to go do to [facility] paper work. Paper work faxed to [facility]. ERIN Le * Farzaneh Zapien RN - 09/15/2020 6:37 AM EST Patient refused to have labs drawn this morning. Oncoming shift aware and will inform the doctor. * Jahaira Gore RN - 09/15/2020 6:15 AM EST Lab notifies this data analyst report writer that patient refused her morning labs and yelled at her to get the hell out of my room. . Will notify Dr. Parra when he rounds. * Farzaneh Zapien RN - 09/15/2020 5:24 AM EST Patient is resting in bed with eyes closed. Will continue to monitor and assess. * Farzaneh Zapien RN - 09/15/2020 4:41 AM EST Patient is still awake and spends most of her time getting in and out of bed. Advanced Quality Engineer continues to observe through the window so as not to aggravate patient further. Will continue to assess and monitor. * Farzaneh Zapien RN - 09/15/2020 3:45 AM EST Patient is up again to the bathroom. Advanced Quality Engineer continues to monitor and offer assistance as needed. * Farzaneh Zapien RN - 09/15/2020 3:31 AM EST Patient remains in the bed but refuses to have her vitals assessed. Patient gets immediately agitated when staff are present in the room. Will continue to monitor. * Oriana Waters RN - 09/15/2020 2:59 AM EST Patient is in bed awake at this time, nurse observance through window due to staff in room with patient causes increased agitation. Staff will continue to monitor. * Farzaneh Zapien RN - 09/15/2020 2:49 AM EST Patient continues to scream in her room. She is sitting on her bed and threatening staff. Patient refusing education and any attempts and reorientation. Continues to swear at staff when staff speaks and is convinced she was told she could go home yesterday. Patient attempts to go to the door to tryto leave the hospital. Staff remains in the room or just outside of the room. Will continue to monitor and assess. * Farzaneh Zapien RN - 09/15/2020 2:29 AM EST Patient became very agitated when she woke up and was yelling when data analyst report writer entered the room. Advanced Quality Engineer and 2 more nurses tried to reorient patient but she was screaming and swearing and did not want to hear what was being said. Patient does not believe it is night time and thinks data analyst report writer is doing something to make it look dark outside. She is yelling that shes leaving and she wants her son to pick herup. When data analyst report writer attempts to reorient patient or talk to her patient states shut your fucking mouthyou little bitch. Patient also loses her temper and charges at staff with her fists up like she isgoing to hit someone. She also shoves and screams in staff faces. Patient was given haldol IM and is currently sitting on the bottom half of her bed and refuses to get in bed or allow staff near her.Advanced Quality Engineer will continue to watch from a safe distance. Patient is stable when she stands and walks around. Advanced Quality Engineer remains close enough to intervene should patient look like she were going to fall. Will continue to monitor and assess. * Farzaneh Zapien RN - 09/14/2020 8:[address] Parra made aware that patient is refusing to have a new IV inserted. New new orders. * Farzaneh Zapien RN - 09/14/2020 8:04 PM EST Patient is anxious about not being home with her cats. She became very aggravated and told data analyst report writer she doesn't want to stay here, to call her brother to get her out of here. Advanced Quality Engineer looked in emergencycontacts but there are no numbers or names. Mimi Caldwell, who patient is asking for, is her son. Advanced Quality Engineer will try to get in contact with patient's family. Patient is resting in bed after using the bathroom but is very leery of nursing staff and fixed on going home. Patient states you can't keep me here against my will. Patient pulled her IV out. Will attempt to reinsert another. Will continue tomonitor and assess. * Dariana Luna RN - 09/14/2020 2:43 PM EST Afternoon assessment completed. See flow sheet for details. Pt denies pain or needs at this time. Call light in reach. Will continue to monitor. Bed alarm active. * Temitope Raphael LSW - 09/14/2020 1:06 PM EST Met with Patient this a.m. and spoke with son via telephone conversation to discuss discharge planning. Patient is a 60 year old , white female, admitted with a diagnosis of Altered Mental Status. Patient is awake and responding to questions being asked of her. At times appears willing to answer questions but cannot recall simple things. Son states at one time a provider had diagnosed herwith depression but further states that she has not seen a provider in a few years as she has refused to be seen. Patient wishes to be discharged to her home but son states that he and sister both work and are really unable to provide for Patient care needs at this time. Patient resides in son's home in [place]. Son states that she has not worked in many years. Patient uses no DME at home and utilizes no outside services. Son relates that she has displayed depressive symptoms through the years but at this point receives no treatment for this. Son states that she hasnever abused drugs or alcohol. Son does not drive so transportation to appointments has been difficult. Patient has no PCP on record. Has seen Dr. Diaz in the past as her READING TEACHER. Patient states that she takes no routine medications at this time. Relates that she has Medicaid and her prescriptions are not difficult to afford. Discharge planning discussed with Patient and with son. Options of home vs ECF vs Sojourn discussed. Son states that he feels that he and sister are unable to meet Patient needs at this time and he opts for placement intermediate. Options presented and son chooses [facility]. Spoke with Indira johnson and she feels that [facility] would be able to meet Patient needs. Pre-cert will need to be obtained at [facility] prior to placement. Son aware and agreeable at this time. Patient is a 'Full Code'status and has no healthcare directives on file. COCKTAIL SERVER to assist with details of facility placement and any other needs as they arise. ERIN Richard 09/14/2020 * Shanna Lucas OT - 09/14/2020 12:44 PM EST Occupational Therapy Occupational Therapy Initial Assessment Date: 09/14/2020 Patient Name: Zev Caldwell : 1960 Date of Service: 09/14/2020 Discharge Recommendations: Continue to assess pending progress, 24 hour supervision or assist, Subacute/Senior Care Facility Assessment Performance deficits / Impairments: Decreased functional mobility;Decreased safe awareness;Decreased balance;Decreased ADL status;Decreased cognition;Decreased endurance;Decreased high-level IADLs;Decreased strength Assessment: Patient is a 60 year old female admitted to hospital with AMS and now is requiring increased assistance with ADLs/IADLs and functional mobility secondary to decreased balance, cognition, endurance, safety and strength. Patient would benefit from skilled OT services to address functionaldeficits in order to maximize functional return, safety and overall QOL. Treatment Diagnosis: Muscle Weakness M62.81 Prognosis: Good Decision Making: Medium Complexity OT Education: OT Role;Plan of Care;Orientation;Transfer Training;ADL Adaptive Strategies Barriers to Learning: Confusion REQUIRES OT FOLLOW UP: Yes Activity Tolerance Activity Tolerance: Treatment limited secondary to decreased cognition Safety Devices Safety Devices in place: Yes Type of devices: Left in bed;Nurse notified;Bed alarm in place;Patient at risk for falls Patient Diagnosis(es): The encounter diagnosis was Altered mental status, unspecified altered mental status type. has a past medical history of Anemia during , Asthma, Fibromyalgia, and Osteoporosis. has a past surgical history that includes Tubal ligation and cyst removal. Treatment Diagnosis: Muscle Weakness M62.81 Restrictions Restrictions/Precautions Restrictions/Precautions: Fall Risk, General Precautions Subjective General Chart Reviewed: Yes Patient assessed for rehabilitation services?: Yes Family / Caregiver Present: No Referring Practitioner: Dr Parra Diagnosis: AMS Subjective Subjective: Patient denies pain at this time. General Comment Comments: Patient laying in bed upon OT arrival, agreeable to OT evaluation. Patient confused, has flat affect and is very timid. Social/Functional History Social/Functional History ADL Assistance: Independent Ambulation Assistance: Independent Transfer Assistance: Independent Additional Comments: Very limited information available on prior living environment/prior level of function. Patient unable to appropriately answer questions associated with social functioning due toincreased confusion. Objective Vision: Within Functional Limits Hearing: Within functional limits Orientation Overall Orientation Status: Impaired Orientation Level: Disoriented to place;Disoriented to time;Disoriented to situation;Oriented to person Balance Sitting Balance: Independent Standing Balance: Stand by assistance Functional Mobility Functional Mobility Device: No device Activity: Other (In room ~5-7 ft) Assist Level: Stand by assistance ADL Feeding: Independent Grooming: Stand by assistance;Increased time to complete;Verbal cueing UE Bathing: Stand by assistance;Increased time to complete;Verbal cueing LE Bathing: Stand by assistance;Increased time to complete;Verbal cueing UE Dressing: Stand by assistance;Increased time to complete;Verbal cueing LE Dressing: Stand by assistance;Increased time to complete;Verbal cueing Toileting: Stand by assistance Additional Comments: Patient is able to complete ADLs without physical assistance, but requires verbal cueing and increased time due to confusion. Tone RUE RUE Tone: Normotonic Tone LUE LUE Tone: Normotonic Coordination Movements Are Fluid And Coordinated: Yes Bed mobility Rolling to Left: Stand by assistance Rolling to Right: Stand by assistance Supine to Sit: Stand by assistance Sit to Supine: Stand by assistance Scooting: Stand by assistance Comment: Patient is able to complete bed mobility without physical assistance, but requires verbal cueing and increased time due to confusion. Transfers Stand Pivot Transfers: Stand by assistance Sit to stand: Stand by assistance Stand to sit: Stand by assistance Transfer Comments: Patient is able to complete transfers/mobility without physical assistance, but requires verbal cueing and increased time due to confusion. Cognition Overall Cognitive Status: Exceptions Arousal/Alertness: Appropriate responses to stimuli Following Commands: Follows one step commands with increased time Attention Span: Appears intact Memory: Decreased recall of precautions;Decreased recall of recent events;Decreased short term memory;Decreased bed bug exterminator memory;Decreased recall of biographical Information Safety Judgement: Decreased awareness of need for assistance;Decreased awareness of need for safety Problem Solving: Decreased awareness of errors;Assistance required to identify errors made;Assistance required to correct errors made Insights: Not aware of deficits Initiation: Requires cues for all Sequencing: Requires cues for all Perception Overall Perceptual Status: WFL Sensation Overall Sensation Status: WFL LUE AROM (degrees) LUE AROM : WFL RUE AROM (degrees) RUE AROM : WFL LUE Strength Gross LUE Strength: WFL RUE Strength Gross RUE Strength: WFL Plan Plan Times per week: 7 Times per day: Daily Current Treatment Recommendations: Strengthening, Safety Education & Training, Balance Training, Patient/Caregiver Education & Training, Self-Care / ADL, Functional Mobility Training, Neuromuscular Re-education, Endurance Training AM-PAC Score AM-PAC Inpatient Daily Activity Raw Score: 19 (09/14/20 1243) [facility] Inpatient ADL T-Scale Score : 40.22 (09/14/20 1243) ADL Inpatient CMS 0-100% Score: 42.8 (09/14/20 1243) ADL Inpatient CMS G-Code Modifier : CK (09/14/20 124) Goals Short term goals Time Frame for Short term goals: 10 days Short term goal 1: Patient will perform 15 minutes of ther ex/ther act without fatigue to improve strength/endurance required for ADLs Short term goal 2: Patient will perform 5 minutes of standing sinkside ADLs without fatigue to improve strength/endurance required for ADLs Short term goal 3: Patient will perform UB/LB ADLs with Mod I using AE PRN while demonstrating Goodbalance and Good safety awareness to return to PLOF Short term goal 4: Patient will perform functional mobility during ADLs with Mod I using LRAD whiledemonstrating Good balance and Good safety awareness to return to PLOF Patient Goals Patient goals: N/A Therapy Time Individual Concurrent Group Co-treatment Time In 1137 Time Out 1156 Minutes 19 Timed Code Treatment Minutes: 19 Minutes Shanna Lucas , FIONA * Dariana Luna RN - 09/14/2020 12:20 PM EST Pt sitting up in bed eating lunch. * Dariana Luna RN - 09/14/2020 9:50 AM EST Advanced Quality Engineer to bedside to give morning medications. Advanced Quality Engineer was able to get pt to take Pepcid. Advanced Quality Engineer attempted to give Lovenox, explaining to pt need for medication and possible results of not taking medication. Advanced Quality Engineer attempted for 15 minutes talking to pt about need for medication when pt became agitated and asked for another nurse. Deedee Zaman to bedside. She had also explained to pt need for medication. Pt adamantly refused medication. Lovenox not given. * Aury Alves [facility] - 09/14/2020 9:27 AM EST PHARMACY NOTE Zev Lj Caldwell was ordered EVISTA. Per the [facility] Formulary Committee Policy, this medication is non-formulary and not stocked by pharmacy. The medication can be reordered at discharge. Aury Alves [facility] 09/14/2020, 9:27 AM * Dariana Luna RN - 09/14/2020 7:[address] Parra at bedside. * Dariana Luna RN - 09/14/2020 7:30 AM EST Pt resting quietly in bed with eyes shut. Arouses easily to name called. Vitals obtained and morning assessment completed. See flow sheet for details. Pt oriented to first name only at this time. Reoriented pt that she is in the hospital at this time. When Dr. Parra at bedside she is able to restateto him that she is in the hospital but does not know what city. Pt denies needs at this time. Call light in reach. Bed alarm active. Will continue to monitor. * Tiffanie Barnett RN - 09/14/2020 5:50 AM EST Pt arrives to [facility] from ER via stretcher. Ambulates to bed with slow, steady gait. Able to tell data analyst report writer first name, but unsure of last name and birthday. Disoriented to date, place, and orientation. Vital signs obtained at this time. Disaster navigator completed to best of pt's ability. Pt denies suicidal ideation. Pt looks scared and is very timid. Pt states that she does not take any home medications and has not seen a doctor in a very long time. Currently resting in bed with call light and belongings within reach. Bed alarm on. documented in this encounter Assessments Diagnosis Altered mental status, unspecified altered mental status type Fibromyalgia Mylagia and myositis, unspecified Normocytic anemia Anemia, unspecified Severe malnutrition (HCC) Nutritional marasmus Additional Source Comments INFORMATION SOURCE (unrecogn ized section and content) DATE CREATED AUTHOR 09/30/2020 [facility] DATE CREATED AUTHOR AUTHOR'S ORGANSARATH ATION 05/06/2022 [facility] Reason for Visit (unrecogniz ed section and content) Reason Comments Other Patient brought in b y EMS, found walking outside, confused Status Reason Specialty Diagnoses / Procedures Referred By Contact Referred To Contact Diagnoses Altered mental status, unspecified Chelsi Parra MD [address] [facility] [address] [place] [id number] [facility] Ordered Prescriptions (unrec ognized section and content) Prescription Sig Dispensed Refills Start Date End Da te cephALEXin (KEFLEX) 500 MG capsule Take 1 capsule by mouth 2 times daily for 7 days 14 capsule 0 09/15/2020 09/22/2020 FOR RECORDS PERTAINING TO PATIENTS WHO ARE OR HAVE BEEN ENROLLED IN A CHEMICAL DEPENDENCY/SUBSTANCEABUSE PROGRAM, SOME INFORMATION MAY BE OMITTED. This clinical summary was aggregated from multiple sources. Caution should be exercised in using it in the provision of clinical care. This summary normalizes information from multiple sources, and as a consequence, information in this document may materially change the coding, format and clinical context of patient data. In addition, data may be omitted in some cases. CLINICAL DECISIONS SHOULD BE BASED ON THE PRIMARY CLINICAL RECORDS. [employer] provides no warranty or guarantee of the accuracy or completeness of information in this document.
== END 2023-08-13 16:15 | disposition home or self-care (01) ==
PROVIDERS: Emergency Provider Emergency Medicine; PCP Family Medicine
DX: S09.8XXA Other specified injuries of head, initial encounter (principal); S00.83XA Contusion of other part of head, initial encounter; F03.90 Unspecified dementia, unspecified severity, without behavioral disturbance, psychotic disturbance, mood disturbance, and anxiety; W06.XXXA Fall from bed, initial encounter
CPT/HCPCS: 70450; 70486; 71045; 72125; 72170; 99284